=== PATIENT | female | born 1945 | race Caucasian/White ===

== ENCOUNTER 2020-03-07 09:16 | Emergency (ER) | payer MEDICARE, SELFPAY ==
[2020-03-07 09:24] VITALS: BP 162/63; PULSE 66; RESP 20; TEMP 36.1; O2SAT 97
--- NOTE | 2020-03-07 09:41 | ED.ALLEREA ---
HPI - Allergic Reaction General Chief complaint: Allergic Reaction Stated complaint: ALLERGIC REACTION Time Seen by Provider: 03/07/20 09:41 Source: patient and RN notes reviewed Mode of arrival: ambulatory Limitations: no limitations History of Present Illness HPI narrative: This is a 74 years old female presented office for evaluation of facial swelling for 1 week. Symptoms began shortly after she with that her new apartment which she suspects the previous tanker driver used to have cat. She began with water eye, itchy nose and face; so she took one dose of benadryl that night. The very next day, her friend told her to spray mask with lysol to disinfected it; which she believes it made her symptoms worse; so she began to take Zyretec instead. She thinks her overall symptoms are getting better except the facial swelling. Denies shortness of breath or difficulty swallowing however she noticed that she feels very thirsty and having to spit a lot. Related Data Home Medications Medication Instructions Recorded Confirmed bisoprolol 10 1 tablet PO DAILY 10/31/19 03/07/20 mg-hydrochlorothiazide 6.25 mg tablet lovastatin 20 mg tablet 20 mg PO DAILY 10/31/19 03/07/20 omeprazole 20 mg capsule,delayed 20 mg PO DAILY 10/31/19 03/07/20 release alprazolam 0.25 mg PO DAILY PRN 03/07/20 03/07/20 Allergies Allergy/AdvReac Type Severity Reaction Status Date / Time Sulfa (Sulfonamide Allergy Mild UNSURE Verified 03/07/20 09:35 Antibiotics) methotrexate Allergy Unknown Unknown Verified 03/07/20 09:35 mirabegron Allergy Unknown Dyspnea / Verified 03/07/20 09:35 SOB Penicillins Allergy Unknown Hives Verified 03/07/20 09:35 sulfamethizole Allergy Unknown Nausea Verified 03/07/20 09:35 Review of Systems Review of Systems: Narrative: CONSTITUTIONAL: Denies fever, chills EYES: Denies visual changes, redness ENT: Denies rhinorrhea, congestion, otalgia. Reports a little scratchy throat and thirsty at night time. CARDIOVASCULAR: Denies chest pain RESPIRATORY: Denies dyspnea, wheezing GASTROINTESTINAL: Denies nausea, vomiting. Reports chronic diarrhea due to her IBS. GENITOURINARY: Denies urinary symptoms SKIN: Denies rash/hives. MUSCULOSKELETAL: Denies acute back pain NEUROLOGIC: Denies lightheaded PMFSH Past Medical History Medical History Acute kidney failure, unspecified Arthritis of foot, degenerative Chronic pulmonary edema Essential (primary) hypertension Familial chondrocalcinosis, unspecified site Mixed stress and urge urinary incontinence Morbid (severe) obesity due to excess calories Nonalcoholic steatohepatitis ([place]) Other specified crystal arthropathies, unspecified site Pes planus of both feet Primary pulmonary hypertension Rotator cuff tear Spinal stenosis, unspecified region other than cervical Type 2 diabetes mellitus with chronic kidney disease, 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 Surgical History Surgical History H/O: hysterectomy total History of knee replacement (2005) History of lumbar laminectomy (2009) Hx of tonsillectomy Family History Family History Sibling Diabetes mellitus Cerebrovascular accident Mother Hypertension Family history of cardiovascular disease Carcinoma of colon Father Family history of kidney disease Other Family history of arthritis Social History Social History Smoking status: Never smoker Alcohol intake: never Comments At time of signature, I agree with nursing past medical, surgical, social and family history. There is no relevant family history pertinent to the presenting complaint. Exam Narrative: Exam Narrative: GENERAL: This is a well-nourished, well-developed patient, in
== END 2020-03-07 10:00 | disposition home or self-care (01) ==
PROVIDERS: Emergency Provider Nurse Practitioner; PCP Family Medicine
DX: L30.9 Dermatitis, unspecified (principal); I12.9 Hypertensive chronic kidney disease with stage 1 through stage 4 chronic kidney disease, or unspecified chronic kidney disease; E11.22 Type 2 diabetes mellitus with diabetic chronic kidney disease; N18.9 Chronic kidney disease, unspecified; Z79.4 Long term (current) use of insulin; K75.81 Nonalcoholic steatohepatitis (NASH); E66.01 Morbid (severe) obesity due to excess calories; Z68.33 Body mass index [BMI] 33.0-33.9, adult
CPT/HCPCS: 99213; G0463

== ENCOUNTER 2020-04-16 12:48 | Outpatient (CLI) | payer MEDICARE, SELFPAY ==
--- NOTE | ~2020-04-16 | XR_ITS ---
EXAMINATION: XR lumbar spine 2-3V DATE: 04/16/2020 14:33 INDICATION: Lumbar radiculopathy TECHNIQUE: Anteroposterior and lateral views of the lumbar spine, and cone-down lateral view of the l umbosacral junction were obtained. COMPARISON: 04/08/2014 FINDINGS: There are changes of anterior and posterior fusion procedures at L4-5. There is chronic sev ere loss of intervertebral disc space height at T12-L1, L1-2, L2-3, and L5-S1. The vertebral body hei ghts are maintained. There are 5 mm of stable anterolisthesis of L4 on L5. No fracture is identified. Surgical clips in the right upper quadrant are likely from prior cholecystectomy. The bowel gas emir scarlet is normal. Phleboliths are noted in the pelvis. There is severe multilevel facet osteoarthritis. IMPRESSION: 1. Severe lumbar spondylosis without acute findings or significant interval change. Reviewed, dictated and finalized at location A. IMPRESSION: 1. Severe lumbar spondylosis without acute findings or significant interval lula nge.
--- NOTE | ~2020-04-16 | MR_ITS ---
EXAMINATION: MR lumbar spine wo con EXAM DATE: 04/16/2020 14:19 INDICATION: Lumbar radiculopathy. TECHNIQUE: Multi-sequential, multiplanar MR images of the lumbar spine were obtained without contrast . Sagittal T1, T2, T2 fat saturation images. Axial T2 weighted images. Comparison is made to prior examination from 02/07/2016. FINDINGS: Posterior fusion and solid bone bridging at L4-5, laminectomies. There is 2-3 mm retrolisth esis L1 on L2 and L2 on L3, 3 mm is anterolisthesis L3 on L4 with moderate disc disease at these 3 le vels. There is mild to moderate disc disease at L2-3. The conus medullaris terminates at the T12-L1 l evel and has normal signal intensity and morphology. There are no suspicious marrow signal abnormali ties. Paraspinal soft tissue is unremarkable. Level by level evaluation: T12-L1: There is a large diffuse disc bulge. Facet arthropathy: Mild to moderate. Neural foraminal stenosis: Moderate right, no left. Central canal stenosis: Mild to moderate. L1-L2: There is a moderate to large diffuse disc bulge. Facet arthropathy: Moderate. Neural foraminal stenosis: Moderate left, mild to moderate right. Central canal stenosis: Mild to moderate. L2-L3: There is a moderate diffuse disc bulge. Facet arthropathy: Moderate. Neural foraminal stenosis: Mild to moderate left, mild right. Central canal stenosis: Mild to moderate. L3-L4: There is a moderate diffuse disc bulge. Facet arthropathy: Probably severe. Neural foraminal stenosis: Moderate to severe left, moderate right. Central canal stenosis: Moderate to severe. L4-L5: This level is fused. Facet arthropathy: Moderate. Neural foraminal stenosis: Moderate to severe right, moderate left. Central canal stenosis: Mild, posterior decompression. L5-S1: There is a mild diffuse disc bulge. Facet arthropathy: Moderate. Neural foraminal stenosis: Mild to moderate bilateral. Central canal stenosis: Moderate. Compared to 2016, there is been interval progression in spondylosis, including the L3-4 Central canal stenosis. IMPRESSION: 1. Fusion, surgical changes L4-5. 2. L3-4 moderate to severe central canal stenosis. Reviewed, dictated and finalized at location A.
--- NOTE | ~2020-04-16 | XR_ITS ---
EXAMINATION: XR thoracic spine 2V DATE: 04/16/2020 14:34 INDICATION: Thoracic radiculopathy TECHNIQUE: AP, lateral and lateral swimmer's views of the thoracic spine were obtained. COMPARISON: None. FINDINGS: There is no fracture. The vertebral body heights and alignment are normal. There is severe loss of intervertebral disc space height in the mid and lower thoracic spine. There are bridging oste ophytes at multiple levels in the spine, consistent with diffuse idiopathic skeletal hyperostosis (DI SH). IMPRESSION: 1. Diffuse idiopathic skeletal hyperostosis and severe thoracic spondylosis without acute findings. Reviewed, dictated and finalized at location A. IMPRESSION: 1. Diffuse idiopathic skeletal hyperostosis and severe thoracic spondylosis wit hout acute findings.
--- NOTE | ~2020-04-16 | MR_ITS ---
EXAMINATION: MR thoracic spine wo con EXAM DATE: 04/16/2020 14:19 INDICATION: Thoracolumbar radiculopathy. TECHNIQUE: Multi-sequential, multiplanar MR images of the thoracic spine were obtained without contra st. Sagittal T1, T2, T2 fat saturation, axial T2 weighted images reviewed. There is no prior study for comparison. FINDINGS: There are mild chronic appearing compression deformities at T6 and T7 with mild disc bulge s at these levels, smaller disc bulges at some other thoracic levels. There is 2 mm anterolisthesis T 2 on T3. Moderate disc disease at C6-7 and T7-8, mild to moderate at the other thoracic levels. Mild to moderate thoracic facet arthropathy. The spinal cord signal intensity and intrinsic morphology is normal. No more than mild to moderate neural foraminal stenosis at some of the mid thoracic levels. N o endplate erosive change. Paraspinal soft tissue is unremarkable. Fluid signal intensity renal lesi ons consistent with cysts. IMPRESSION: 1. Moderate mid thoracic disc disease and 2 mild chronic appearing compression fractures. 2. Otherwise mild to moderate thoracic spondylosis. Reviewed, dictated and finalized at location A.
== END 2020-04-16 12:49 | disposition home or self-care (01) ==
PROVIDERS: PCP Family Medicine; Visit Provider Nurse Practitioner Adult Health
DX: M54.16 Radiculopathy, lumbar region (principal); M54.14 Radiculopathy, thoracic region; M51.84 Other intervertebral disc disorders, thoracic region; M48.54XA Collapsed vertebra, not elsewhere classified, thoracic region, initial encounter for fracture; M47.814 Spondylosis without myelopathy or radiculopathy, thoracic region; Z98.1 Arthrodesis status; M48.061 Spinal stenosis, lumbar region without neurogenic claudication; M48.14 Ankylosing hyperostosis [Forestier], thoracic region; M47.816 Spondylosis without myelopathy or radiculopathy, lumbar region
CPT/HCPCS: 72070; 72100; 72146; 72148

== ENCOUNTER → 2020-11-10 17:17 | Outpatient (CLI) | payer MEDICARE, SELFPAY ==
--- NOTE | ~2020-11-10 | MM_ITS ---
EXAMINATION: MM screening [facility] BI w phil HISTORY: Screening mammogram TECHNIQUE: Craniocaudal and mediolateral oblique 3-D tomosynthesis images were obtained and synthetic 2-D images were generated. CAD analysis was submitted and interpreted. COMPARISON: 08/15/2019, 07/22/2018, 06/07/2017 BREAST PARENCHYMAL COMPOSITION: The breasts are almost entirely fatty. FINDINGS: There is no evidence of suspicious mass, calcification, or architectural distortion to sugg est malignancy in either breast. There has been no suspicious interval change. IMPRESSION: 1. No mammographic evidence of malignancy. 2. Recommend routine screening mammography in one year. BI-RADS Category 1: Negative Reviewed, dictated and finalized at location A. RESSOR ENGINEER
== END ==
PROVIDERS: PCP Family Medicine; Visit Provider Family Medicine
DX: Z12.31 Encounter for screening mammogram for malignant neoplasm of breast (principal)
CPT/HCPCS: 77063; 77067

== ENCOUNTER 2020-11-20 12:37 | Emergency (ER) | payer MEDICARE, SELFPAY ==
--- NOTE | ~2020-11-20 | XR_ITS ---
EXAMINATION: XR chest 2V 11/20/2020 16:40 INDICATION: Hypertension. Lightheadedness. PROCEDURE: AP and lateral views of the chest COMPARISON: Comparison to multiple prior studies sequentially, with oldest reviewed study dated 06/2006. FINDINGS: The lungs are clear. The cardiomediastinal silhouette is within normal limits. There are no pleural effusions. There is no pneumothorax suspected. There is a left shoulder arthroplasty. Th ere are surgical changes right humeral head. IMPRESSION: 1: NO ACUTE CARDIOPULMONARY DISEASE. Reviewed, dictated and finalized at location A. STMENT SPECIALIST
--- NOTE | ~2020-11-20 | CT_ITS ---
EXAMINATION: CT brain wo con DATE: 11/20/2020 16:32 INDICATION: Weakness. Transient alteration of awareness. TECHNIQUE: Computed tomography (CT) of the head was performed without intravenous contrast. The dose- length product was 605.33 mGy-cm. Automated exposure control and iterative reconstruction technique w ere employed. COMPARISON: None FINDINGS: Study limited due to exclusion of the vertex of the brain. No acute intracranial hemorrhage , infarction, mass or mass effect. Mild atrophy. There are scattered mild periventricular and subcort ical white matter changes, most likely related to small vessel ischemic disease (microangiopathy). Th ere is intracranial atherosclerosis. IMPRESSION: 1. No acute intracranial abnormality. 2: Chronic age-related findings. Reviewed, dictated and finalized at location A. LEATHER SETTER
[2020-11-20 12:41] VITALS: BP 176/80; PULSE 78; RESP 20; TEMP 36.6; O2SAT 97
[2020-11-20 13:00] LABS: Basophils Percent Auto 0.6 % (0.2-1.2); Eosinophils Absolute Auto 0.2 K/mm3 (0-0.3); Eosinophils Percent Auto 3.1 % (0-4.4); Hematocrit 33.8 % (37.0-47.0); Hemoglobin 10.6 g/dL (12.0-15.0); Immature Granulocyte Absolute 0.02 K/mm3 (0.00-0.031); Immature Granulocyte Percent A 0.4 % (0-0.5); Lymphocytes Absolute Auto 1.39 K/mm3 (0.9-3.2); Lymphocytes Percent Auto 27.3 % (18.3-44.2); Mean Corpuscular HGB Conc 31.4 g/dl (32-36); Mean Corpuscular Hemoglobin 26.8 pg (26-34); Mean Corpuscular Volume 85.6 fl (80-100); Mean Platelet Volume 9.4 fl (7.4-10.4); Monocytes Absolute Auto 0.4 K/mm3 (0.1-0.6); Monocytes Percent Auto 8.1 % (2.6-8.5); Neutrophils Absolute Auto 3.1 K/mm3 (1.3-6.7); Neutrophils Percent Auto 60.5 % (45.5-73.1); Platelet Count Result 176 k/mm3 (150-375); Red Blood Count 3.95 M/mm3 (4.2-5.4); Red Cell Distribution Width 15.8 % (11.5-14.5); White Blood Count 5.1 K/mm3 (4.5-10.0)
[2020-11-20 13:12] LABS: Alanine Aminotransferase 17 U/L (4-35); Albumin Level 4.1 g/dL (3.5-5.1); Alkaline Phosphatase 83 U/L (38-126); Anion Gap 11 mmol/L (8-16); Aspartate Amino Transferase 24 U/L (14-36); Bilirubin,Total 0.4 mg/dL (0.2-1.3); Blood Urea Nitrogen 36 mg/dL (7-17); Calcium 9.4 mg/dL (8.4-10.2); Carbon Dioxide 27 mmol/L (22-30); Chloride 96 mmol/L (98-107); Estimated CRCL calculation 28 ml/min; Estimated Glomerular Filt Rate 32; Glucose 122 mg/dL (65-105); Potassium 4.1 mmol/L (3.4-5.0); Sodium 134 mmol/L (137-145)
[2020-11-20 13:50] LABS: Add Urine Microscopic? NO; Appearance Urine Clear (Clear); Bilirubin Urine Negative (Negative); Blood Urine Negative (Negative); Color Urine Straw (Yellow); Glucose Urine UA Negative (Negative); Ketones Urine Negative (Negative); Leukocyte Esterase Ur Negative LEU/UL (Negative); Nitrate Urine Negative (Negative); Protein Urine Negative (Negative); Specific Grav Ur 1.011 (1.001-1.035); Urobilinogen Urine Negative mg/dL (<2.0)
[2020-11-20 14:48] VITALS: BP 149/62; PULSE 78; RESP 16; TEMP 36.7; O2SAT 98
[2020-11-20] MEDS: SODIUM CHLORIDE 0.9% IV 1,000 ML 999 ML IV CONT ×2 (14:51→16:18)
--- NOTE | 2020-11-20 16:04 | ECG_ITS ---
Measurements Intervals [place] Rate: 67 P: 83 WI: 194 QRS: 17 QRSD: 102 T: 22 QT: 408 QTc: 433 Interpretive Statements SINUS RHYTHM DELAYED PRECORDIAL R/S TRANSITION VOLTAGE CRITERIA FOR LVH BORDERLINE ECG Electronically Signed On 11-20-2020 20:15:54 NURSING DEPARTMENT CHAIRPERSON by Michael Moreno D.O.
--- NOTE | 2020-11-20 16:07 | ED.WEAKNESS ---
HPI - Weakness General Chief complaint: Weakness Stated complaint: weak/ 3 neg covid test/diarrhea Time Seen by Provider: 11/20/20 14:38 Source: patient Mode of arrival: ambulatory Limitations: no limitations History of Present Illness HPI Narrative: This is a 74 year old female that presents to the ER for generalized weakness. Reports she has history of IBS and does have loose stools often. But over the last week has had worsening diarrhea and feels lightheaded when she stands up. Reports she generally feels unwell. Denies fever, abdominal pain, vomiting, hematochezia, dysuria or hematuria. Related Data Home Medications Medication Instructions Recorded Confirmed calcium carbonate 600 mg calcium 600 mg PO BID 07/12/20 11/11/20 (1,500 mg) tablet cholecalciferol (vitamin D3) 25 25 mcg PO DAILY 07/12/20 11/11/20 mcg (1,000 unit) capsule diclofenac sodium 1 % topical gel 2 gm TOPICAL QID 07/12/20 11/11/20 folic acid 1 mg tablet 1 mg PO DAILY 07/12/20 11/11/20 magnesium 250 mg tablet 500 mg PO DAILY tablet 07/12/20 11/11/20 Allergies Allergy/AdvReac Type Severity Reaction Status Date / Time Sulfa (Sulfonamide Allergy Mild UNSURE Verified 11/20/20 14:32 Antibiotics) methotrexate Allergy Unknown Unknown Verified 11/20/20 14:32 mirabegron Allergy Unknown Dyspnea / Verified 11/20/20 14:32 SOB Penicillins Allergy Unknown Hives Verified 11/20/20 14:32 sulfamethizole Allergy Unknown Nausea Verified 11/20/20 14:32 Review of Systems Review of Systems: Narrative: CONSTITUTIONAL: Denies fever CARDIOVASCULAR: Denies chest pain RESPIRATORY: Denies cough or dyspnea. GASTROINTESTINAL: Reports nausea and diarrhea. Denies abdominal pain, vomiting GENITOURINARY: Denies dysuria or hematuria. NEUROLOGIC: Reports generalized weakness. All systems reviewed & are unremarkable except as noted in HPI and below PMFSH Past Medical History Medical History (Updated 11/20/20 @ 17:50 by Scarlett Castro PA-C) Acute kidney failure, unspecified Arthritis of foot, degenerative Arthritis of left shoulder region Chronic pain Chronic pulmonary edema CKD (chronic kidney disease) stage 3, GFR 30-59 ml/min Compression fracture of body of thoracic vertebra Degenerative lumbar spinal stenosis Essential (primary) hypertension Familial chondrocalcinosis, unspecified site Mixed stress and urge urinary incontinence Morbid (severe) obesity due to excess calories Nonalcoholic steatohepatitis ([place]) Obesity (BMI 30.0-34.9) Osteopenia Other specified crystal arthropathies, unspecified site Pes planus of both feet Primary pulmonary hypertension Pseudogout Rotator cuff tear Spinal stenosis, unspecified region other than cervical Type 2 diabetes mellitus with chronic kidney disease, 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 Urinary incontinence Surgical History Surgical History H/O: hysterectomy total History of knee replacement (2005) History of lumbar laminectomy (2009) Hx of tonsillectomy S/P arthroscopy of left shoulder Family History Family History Sibling Diabetes mellitus Cerebrovascular accident Mother Hypertension Family history of cardiovascular disease Carcinoma of colon Father Family history of kidney disease Other Family history of arthritis Social History Social History Smoking status: Never smoker Alcohol intake: never Exam Narrative: Exam Narrative: GENERAL: Elderly, well-nourished, and in no acute distress. HEAD: Normocephalic, atraumatic. EYES: EOMI. ENT: Nares clear, no rhinorrhea or epistaxis. Mucous membranes moist. Oropharynx without tonsillar hypertrophy exudate or other lesions. NECK: Supple. No adenopathy or masses. CHEST: Clear to auscultation. No respiratory distress. No wheez
[2020-11-20 16:45] VITALS: BP 147/71; BP 174/70; PULSE 68; PULSE 71
[2020-11-20 16:47] VITALS: BP 181/71; PULSE 72
== END 2020-11-20 18:18 | disposition home or self-care (01) ==
PROVIDERS: Emergency Provider Emergency Medicine; PCP Family Medicine
DX: E86.0 Dehydration (principal); K58.9 Irritable bowel syndrome, unspecified; E11.22 Type 2 diabetes mellitus with diabetic chronic kidney disease; I12.9 Hypertensive chronic kidney disease with stage 1 through stage 4 chronic kidney disease, or unspecified chronic kidney disease; N18.30 Chronic kidney disease, stage 3 unspecified; Z79.84 Long term (current) use of oral hypoglycemic drugs; E11.21 Type 2 diabetes mellitus with diabetic nephropathy; N39.46 Mixed incontinence; M85.80 Other specified disorders of bone density and structure, unspecified site; M21.42 Flat foot [pes planus] (acquired), left foot; M21.41 Flat foot [pes planus] (acquired), right foot; M11.20 Other chondrocalcinosis, unspecified site; I27.20 Pulmonary hypertension, unspecified; E66.01 Morbid (severe) obesity due to excess calories; Z68.33 Body mass index [BMI] 33.0-33.9, adult; K75.81 Nonalcoholic steatohepatitis (NASH); J81.1 Chronic pulmonary edema; M19.079 Primary osteoarthritis, unspecified ankle and foot; M19.012 Primary osteoarthritis, left shoulder; R94.31 Abnormal electrocardiogram [ECG] [EKG]
CPT/HCPCS: 36415; 70450; 71046; 80053; 81003; 85025; 93005; 96360; 96361; 99284; J7030

== ENCOUNTER 2021-06-20 14:10 | Inpatient (IN) | payer MEDICARE, SELFPAY ==
--- NOTE | ~2021-06-20 | XR_ITS ---
XR chest 2V 06/20/2021 14:43 Indication: Weakness, cough and shortness of breath. No fever. Procedure: AP and lateral views of the chest Comparison: Comparison to multiple prior studies sequentially, with oldest reviewed study dated 10/26. Findings: Heart size is normal. No focal air space disease, pulmonary edema, pleural effusion or susp ected pneumothorax. There is a left shoulder arthroplasty. Impression: 1: No acute cardiopulmonary disease. Reviewed, dictated and finalized at location A. Impression: 1: No acute cardiopulmonary disease.
[2021-06-20 14:26] VITALS: BP 105/57; PULSE 80; RESP 18; TEMP 36.9; O2SAT 99
--- NOTE | 2021-06-20 14:29 | ECG_ITS ---
Measurements Intervals [place] Rate: 78 P: 29 MO: 176 QRS: -29 QRSD: 102 T: 30 QT: 383 QTc: 437 Interpretive Statements SINUS RHYTHM DELAYED PRECORDIAL R/S TRANSITION VOLTAGE CRITERIA FOR LVH BORDERLINE ECG Electronically Signed On 06-20-2021 14:59:02 CDT by Michael Moreno D.O.
[2021-06-20 14:45] LABS: Basophils Percent Auto 0.3 % (0.2-1.2); Eosinophils Percent Auto 0.2 % (0-4.4); Hematocrit 30.7 % (37.0-47.0); Hemoglobin 8.7 g/dL (12.0-15.0); Immature Granulocyte Absolute 0.02 K/mm3 (0.00-0.031); Immature Granulocyte Percent A 0.3 % (0-0.5); Lymphocytes Absolute Auto 1.22 K/mm3 (0.9-3.2); Lymphocytes Percent Auto 21.2 % (18.3-44.2); Mean Corpuscular HGB Conc 28.3 g/dl (32-36); Mean Corpuscular Hemoglobin 20.7 pg (26-34); Mean Corpuscular Volume 72.9 fl (80-100); Mean Platelet Volume 9.4 fl (7.4-10.4); Monocytes Absolute Auto 0.5 K/mm3 (0.1-0.6); Platelet Count Result 148 k/mm3 (150-375); Red Blood Count 4.21 M/mm3 (4.2-5.4); Red Cell Distribution Width 19.7 % (11.5-14.5); White Blood Count 5.8 K/mm3 (4.5-10.0)
[2021-06-20 15:01] LABS: Alanine Aminotransferase 20 U/L (4-35); Albumin Level 4.3 g/dL (3.5-5.1); Alkaline Phosphatase 105 U/L (38-126); Anion Gap 11 mmol/L (8-16); Aspartate Amino Transferase 31 U/L (14-36); Bilirubin,Total 0.4 mg/dL (0.2-1.3); Blood Urea Nitrogen 32 mg/dL (7-17); Carbon Dioxide 22 mmol/L (22-30); Chloride 98 mmol/L (98-107); Estimated CRCL calculation 22 ml/min; Estimated Glomerular Filt Rate 24; Glucose 99 mg/dL (65-110); Potassium 4.5 mmol/L (3.4-5.0); Sodium 131 mmol/L (137-145)
[2021-06-20 16:36] LABS: Hypochromasia 1+ (NORMAL); Ovalocytes 1+ (NORMAL); Platelet Estimate Adequate (Adequate)
--- NOTE | 2021-06-20 20:38 | ED.URI ---
HPI - URI/Sore Throat General Chief Complaint: Upper Respiratory Infection Stated Complaint: runny nose, cough, weakness Time Seen by Provider: 06/20/21 20:37 Source: patient Mode of arrival: wheelchair Limitations: no limitations History of Present Illness HPI Narrative: Patient is a 75-year-old female with history of chronic kidney disease, diabetes, hypertension who presents for evaluation of weakness. Patient states she has felt unwell over the past 4 days, symptoms beginning on Sunday. Patient states that she developed a dry cough, rhinorrhea, sore throat and general malaise. She states she had a low-grade fever of 99 Fahrenheit. At that point in time, she was visiting with her brother and 2 grandchildren, who have been in good health without any symptoms. Patient states that she then developed a productive cough and was seen by her primary care physician who diagnosed her with sinusitis. Patient states that she has been feeling worse with development of diarrhea. No current abdominal pain or nausea. Patient states she feels diffusely weak without focal weakness or numbness. She states she has had decreased oral intake. She denies loss of sense of taste or smell. No known Covid contacts. States she has been vaccinated for coronavirus and has no history of infection. She denies any dysuria or hematuria. No current chest pain. Related Data Home Medications Medication Instructions Recorded Confirmed calcium carbonate 600 mg calcium 600 mg PO BID 07/12/20 06/15/21 (1,500 mg) tablet cholecalciferol (vitamin D3) 25 25 mcg PO DAILY 07/12/20 06/15/21 mcg (1,000 unit) capsule magnesium 250 mg tablet 500 mg PO DAILY tablet 07/12/20 06/15/21 Allergies Allergy/AdvReac Type Severity Reaction Status Date / Time Sulfa (Sulfonamide Allergy Mild UNSURE Verified 06/20/21 21:02 Antibiotics) methotrexate Allergy Unknown Unknown Verified 06/20/21 21:02 mirabegron Allergy Unknown Dyspnea / Verified 06/20/21 21:02 SOB Penicillins Allergy Unknown Hives Verified 06/20/21 21:02 sulfamethizole Allergy Unknown Nausea Verified 06/20/21 21:02 Review of Systems Review of Systems: Narrative: CONSTITUTIONAL: Reports low-grade fever EYES: Denies visual changes, redness, or discharge. ENT: Reports rhinorrhea and congestion CARDIOVASCULAR: Denies chest pain, palpitations, or edema. RESPIRATORY: Denies cough or dyspnea. GASTROINTESTINAL: Denies abdominal pain, reports intermittent nausea and diarrhea GENITOURINARY: Denies dysuria or hematuria. SKIN: Denies rash or itching. MUSCULOSKELETAL: Denies back pain, joint pain, or myalgia. NEUROLOGIC: Denies headache, numbness, reports feeling diffusely weak PMFSH Past Medical History Medical History Acute kidney failure, unspecified Adjustment disorder with depressed mood Arthritis of foot, degenerative Arthritis of left shoulder region Chronic pain Chronic pulmonary edema CKD (chronic kidney disease) stage 3, GFR 30-59 ml/min Compression fracture of body of thoracic vertebra Degenerative lumbar spinal stenosis Essential (primary) hypertension Familial chondrocalcinosis, unspecified site Mixed stress and urge urinary incontinence Morbid (severe) obesity due to excess calories Nonalcoholic steatohepatitis ([place]) Obesity (BMI 30.0-34.9) Osteopenia Other specified crystal arthropathies, unspecified site Pes planus of both feet Primary pulmonary hypertension Pseudogout Rotator cuff tear Spinal stenosis, unspecified region other than cervical Type 2 diabetes mellitus with chronic kidney disease, 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 Urinary incontinence Surgical History Surgical History H/O: hysterectomy total History of knee replacement (2005) History of lumbar laminectomy (2009) Hx of tonsillectomy S/P arthroscopy of l
[2021-06-20 21:35] VITALS: O2SAT 95
[2021-06-20] MEDS: SODIUM CHLORIDE 0.9% IV 1,000 ML 150 ML IV CONT (21:50)
[2021-06-20] MEDS: SODIUM CHLORIDE 0.9% IV 1,000 ML 999 ML IV CONT (21:50)
[2021-06-20 21:52] LABS: Troponin I < 0.012 ng/mL (0.000-0.034)
[2021-06-20 23:20] LABS: Add Urine Microscopic? YES; Appearance Urine Clear (Clear); Bacteria Urine Trace /hpf; Bilirubin Urine Negative (Negative); Blood Urine Negative (Negative); Color Urine Straw (Yellow); Glucose Urine UA Negative (Negative); Ketones Urine Negative (Negative); Leukocyte Esterase Ur Negative LEU/UL (Negative); Mucus Urine Rare /lpf; Nitrate Urine Positive (Negative); Protein Urine Negative (Negative); RBC Urine 0-2 /hpf (0-2); Specific Grav Ur 1.008 (1.001-1.035); Squamous Epithelial Cell Urine Rare /hpf (Few); Urobilinogen Urine Negative mg/dL (<2.0); WBC Urine 0-3 /hpf
--- NOTE | 2021-06-20 23:58 | PM.IMHP ---
H&P: HPI History of Present Illness Date/Time: 06/20/21 23:58 Chief Complaint: weakness Narrative: This is a 75-year-old female with past medical history significant for hypertension, GERD, irritable bowel syndrome, diverticulosis, degenerative joint disease, recent back surgery in January of 2021. Patient states that she has been having for the last 2 weeks or so diarrhea also just recently started having rhinorrhea with chest congestion and productive cough, poor appetite. preliminary workup in emergency room was significant for elevated Bun/Creatinine, slightly low sodium, chest x-ray was clear. She has had abdominal tenderness which is mostly diffusely localized states that is normal for her due to her irritable bowel syndrome she denies any nausea or vomiting. She has been taken Tylenol extra-strength for back pain after her back surgery and baclofen for spasms. she presented to the emergency room in a wheelchair. Review of Systems Review of Systems: Narrative: generalized weakness lower back pain low-grade fevers renal Stokes productive cough Constitutional: Constitutional: Reports chills, Reports fever(s) and Reports weakness Eyes: Eyes: Reports change in vision ENT: Denies dysphagia, Denies dizziness, Reports nasal congestion and Reports nasal discharge Cardiovascular: Cardiovascular: Denies rapid heart rate, Denies irregular heart rhythm, Denies lightheadedness, Denies radiating jaw, neck or arm pain, Denies palpitations, Denies dyspnea on exertion and Denies orthopnea Respiratory: Respiratory: Reports change in phlegm color, Reports chest congestion, Reports cough and Denies dyspnea Gastrointestinal: Gastrointestinal: Reports abdominal pain, Denies dyspepsia, Denies heartburn, Reports diarrhea, Denies nausea and Denies vomiting Genitourinary: Genitourinary: Reports no additional female genitourinary complaints Musculoskeletal: Musculoskeletal: Reports back pain Comments: lower back surgery in January of 2021 Integumentary/Breasts: Skin/Breast: Reports system reviewed and no additional complaints, except as docu Neurologic: Reports system reviewed and no additional complaints, except as documented, Denies dizziness, Denies focal weakness and Denies weakness Psychiatric: Psychiatric: Reports no additional psychiatric complaints Endocrine: Endocrine: Reports no additional endocrine complaints Hematologic/Lymphatic: Hematologic/Lymphatic: Reports no additional hematologic/lymphatic complaints Allergic/Immunologic: Allergic/Immunologic: Reports no additional allergic/immunologic complaints PMFSH Past Medical History Medical History Acute kidney failure, unspecified Adjustment disorder with depressed mood Arthritis of foot, degenerative Arthritis of left shoulder region Chronic pain Chronic pulmonary edema CKD (chronic kidney disease) stage 3, GFR 30-59 ml/min Compression fracture of body of thoracic vertebra Degenerative lumbar spinal stenosis Essential (primary) hypertension Familial chondrocalcinosis, unspecified site Mixed stress and urge urinary incontinence Morbid (severe) obesity due to excess calories Nonalcoholic steatohepatitis ([place]) Obesity (BMI 30.0-34.9) Osteopenia Other specified crystal arthropathies, unspecified site Pes planus of both feet Primary pulmonary hypertension Pseudogout Rotator cuff tear Spinal stenosis, unspecified region other than cervical Type 2 diabetes mellitus with chronic kidney disease, 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 Urinary incontinence Surgical History Surgical History H/O: hysterectomy total History of knee replacement (2005) History of lumbar laminectomy (2009) Hx of tonsillectomy S/P arthroscopy of left shoulder Family History Family History Sibling
[2021-06-21] VITALS (7 sets, daily range): BP systolic 123–145; BP diastolic 52–64; PULSE 74–99; RESP 16–18; TEMP 36.3–36.7; O2SAT 95–97; BMI 33.3
[2021-06-21] MEDS: ALPRAZolam (*CRX) 0.25 MG TABLET PO ×3 (02:49→22:59)
[2021-06-21] MEDS: ACETAMINOPHEN 500 MG TABLET 1000 MG PO (02:49)
[2021-06-21] MEDS: BACLOFEN 10 MG TABLET 20 MG PO ×4 (02:51→22:56)
[2021-06-21 06:39] LABS: Basophils Percent Auto 0.2 % (0.2-1.2); Eosinophils Percent Auto 0.2 % (0-4.4); Hematocrit 28.2 % (37.0-47.0); Hemoglobin 7.9 g/dL (12.0-15.0); Immature Granulocyte Absolute 0.03 K/mm3 (0.00-0.031); Immature Granulocyte Percent A 0.7 % (0-0.5); Immature Platelet Fraction Pct 8.4 % (0.9-11.2); Lymphocytes Absolute Auto 1.21 K/mm3 (0.9-3.2); Lymphocytes Percent Auto 27.1 % (18.3-44.2); Mean Corpuscular Hemoglobin 20.7 pg (26-34); Monocytes Absolute Auto 0.3 K/mm3 (0.1-0.6); Monocytes Percent Auto 6.3 % (2.6-8.5); Neutrophils Absolute Auto 2.9 K/mm3 (1.3-6.7); Neutrophils Percent Auto 65.5 % (45.5-73.1); Platelet Count Result 103 k/mm3 (150-375); Red Blood Count 3.81 M/mm3 (4.2-5.4); Red Cell Distribution Width 19.7 % (11.5-14.5); White Blood Count 4.5 K/mm3 (4.5-10.0)
[2021-06-21 07:05] LABS: Anion Gap 11 mmol/L (8-16); Blood Urea Nitrogen 27 mg/dL (7-17); Calcium 8.4 mg/dL (8.4-10.2); Carbon Dioxide 19 mmol/L (22-30); Chloride 101 mmol/L (98-107); Estimated CRCL calculation 33 ml/min; Estimated Glomerular Filt Rate 40; Glucose 82 mg/dL (65-110); Potassium 4.9 mmol/L (3.4-5.0); Sodium 131 mmol/L (137-145)
[2021-06-21 07:22] LABS: Anisocytosis 2+ (NORMAL)
[2021-06-21 07:23] LABS: Ovalocytes 1+ (NORMAL)
[2021-06-21 07:24] LABS: Poikilocytosis 1+ (NORMAL)
[2021-06-21 08:13] LABS: Immature Reticulocyte Fraction 23.1 % (3.0-15.9); Reticulocyte Hemoglobin Conten 22.4 pg (28.2-35.7); Reticulocyte Percent 0.82 % (0.7-4.3); Reticulocytes Absolute 0.03 B/L (32.2-175.7)
--- NOTE | 2021-06-21 08:29 | ADMGEN ---
This patient, Elizabeth Rodriguez, was admitted to [facility] Surg Room 315-01. Patient/family oriented to hospital policies and general routines including ID bracelet, bed and alarms, visiting hours, pain management, procedures, bathroom and other care routines, personal items, smoking policy, room service/diet, and visiting hours. Information on how to activate the Rapid Response Team has been discussed. Patient/Family are encouraged to report perceived risks to care and to ask questions if they do not understand what they are told or what they should do. Discussed hospital policy, medications, call light use, bed alarm, SCD's and current health status. Patient states that she has been anxious to receive her nightly medications which were discussed by Dr. Mckeon.
[2021-06-21 08:33] LABS: Lactate Dehydrogenase 985 U/L (313-618)
[2021-06-21 08:37] LABS: Glucose Point of Care 86 mg/dl (65-105)
[2021-06-21 08:40] LABS: Transferrin 304 mg/dL (206-381)
[2021-06-21 08:43] LABS: NT Pro B Type Natriuretic Pept 182 pg/mL (5-100)
[2021-06-21 09:43] LABS: Iron 17 ug/dL (37-170)
[2021-06-21 09:50] LABS: Folic Acid > 20.0 ng/mL (2.76->20)
[2021-06-21 09:55] LABS: Percent Iron Saturation 4 % (20-50)
[2021-06-21 10:14] LABS: Thyroid Stimulating Hormone Reflex 0.613 uIU/mL (0.465-4.68)
[2021-06-21] MEDS: POTASSIUM CHLORIDE 20 MEQ TABLET PO (10:14)
--- NOTE | 2021-06-21 11:08 | P.PNIM_ITS ---
Progress Note: A&P Assessment and Plan (1) Acute kidney injury superimposed on CKD: Code(s): N17.9 - Acute kidney failure, unspecified; N18.9 - Chronic kidney disease, unspecified Status: Acute Assessment and Plan: * Baseline 1.0-1.6 * Back to baseline at 1.30 * secondary to GI losses, poor p.o. intake, use of diuretics. * IV fluids--received 2L from the ED * Restart home Furosemide 20 mg p.o. tablet daily * hold losartan * trend BUN and creatinine * labs in the a.m. * urine cultures pending * UA shows positive nitrates * intake and output daily (2) Weakness: Code(s): R53.1 - Weakness Status: Acute Assessment and Plan: * patient does have signs of anemia * H&H this morning was 7.9/28.2 yesterday it was 8.7/30.7 * secondary to chronic illness, recent back surgery, deconditioning * PT OT consult (3) Upper respiratory infection: Code(s): J06.9 - Acute upper respiratory infection, unspecified Status: Acute Assessment and Plan: * complaint of congestion, cough with yellow sputum production. * chest x-ray clear * 1 g of ceftriaxone given in the ED * white blood cell count is 4.5 * trend white blood cell count * blood cultures were not drawn prior to ceftriaxone * will consider getting blood cultures in the morning depending on the patient's course * COVID swab is pending (4) Degenerative lumbar spinal stenosis: Code(s): M48.061 - Spinal stenosis, lumbar region without neurogenic claudication Status: Acute Assessment and Plan: * status post bilateral knee replacement * is status post a lumbar laminectomy * supportive care * Continue home baclofen 20 mg p.o. t.i.d. (5) Type 2 diabetes mellitus with chronic kidney disease, without long-term current use of insulin: Code(s): E11.22 - Type 2 diabetes mellitus with diabetic chronic kidney disease Status: Chronic Assessment and Plan: * glucose this morning is 82 * Accu-Cheks AC and HS * insulin sliding scale as needed * holding metformin * hypoglycemia protocol * trend labs * labs in the a.m. * adjust medications as needed (6) Irritable bowel syndrome: Code(s): K58.9 - Irritable bowel syndrome without diarrhea Status: Acute Assessment and Plan: * follow-up in outpatient setting (7) Anemia: Code(s): D64.9 - Anemia, unspecified Status: Acute Assessment and Plan: * H&H is 7.9/28.2 today * H&H yesterday was 8.7/30.7 * anemia labs -iron 17, TIBC 408,% saturation 4, ferritin 29.5, transferrin is 304, LDH 985, B12 230, folate less than 20 * will start patient on oral iron * trend H&H * labs in the morning * will consider an occult blood due to complaints of diarrhea for long period of time Subjective Date/time seen: 06/21/21 09:15 Interval history: This is a 75-year-old female with past medical history significant for hypertension, GERD, irritable bowel syndrome, diverticulosis, degenerative joint disease, recent back surgery in January of 2021 who presented to the ED for evaluation of diarrhea, cough, congestion. patient stated that this all started on Sunday. She stated that she was outside with her son and she contributed to be sinuses. She also stated that her cough was dry at 1st and then it has now became productive with yellow sputum. She also states that she has had this issue before with the diarrhea a
--- NOTE | 2021-06-21 11:08 | PM.IMPN ---
Progress Note: A&P Assessment and Plan (1) Acute kidney injury superimposed on CKD: Code(s): N17.9 - Acute kidney failure, unspecified; N18.9 - Chronic kidney disease, unspecified Status: Acute Assessment and Plan: Baseline 1.0-1.6 Back to baseline at 1.30 secondary to GI losses, poor p.o. intake, use of diuretics. IV fluids--received 2L from the ED Restart home Furosemide 20 mg p.o. tablet daily hold losartan trend BUN and creatinine labs in the a.m. urine cultures pending UA shows positive nitrates intake and output daily (2) Weakness: Code(s): R53.1 - Weakness Status: Acute Assessment and Plan: patient does have signs of anemia H&H this morning was 7.9/28.2 yesterday it was 8.7/30.7 secondary to chronic illness, recent back surgery, deconditioning PT OT consult (3) Upper respiratory infection: Code(s): J06.9 - Acute upper respiratory infection, unspecified Status: Acute Assessment and Plan: complaint of congestion, cough with yellow sputum production. chest x-ray clear 1 g of ceftriaxone given in the ED white blood cell count is 4.5 trend white blood cell count blood cultures were not drawn prior to ceftriaxone will consider getting blood cultures in the morning depending on the patient's course COVID swab is pending (4) Degenerative lumbar spinal stenosis: Code(s): M48.061 - Spinal stenosis, lumbar region without neurogenic claudication Status: Acute Assessment and Plan: status post bilateral knee replacement is status post a lumbar laminectomy supportive care Continue home baclofen 20 mg p.o. t.i.d. (5) Type 2 diabetes mellitus with chronic kidney disease, without long-term current use of insulin: Code(s): E11.22 - Type 2 diabetes mellitus with diabetic chronic kidney disease Status: Chronic Assessment and Plan: glucose this morning is 82 Accu-Cheks AC and HS insulin sliding scale as needed holding metformin hypoglycemia protocol trend labs labs in the a.m. adjust medications as needed (6) Irritable bowel syndrome: Code(s): K58.9 - Irritable bowel syndrome without diarrhea Status: Acute Assessment and Plan: follow-up in outpatient setting (7) Anemia: Code(s): D64.9 - Anemia, unspecified Status: Acute Assessment and Plan: H&H is 7.9/28.2 today H&H yesterday was 8.7/30.7 anemia labs -iron 17, TIBC 408,% saturation 4, ferritin 29.5, transferrin is 304, LDH 985, B12 230, folate less than 20 will start patient on oral iron trend H&H labs in the morning will consider an occult blood due to complaints of diarrhea for long period of time Subjective Date/time seen: 06/21/21 09:15 Interval history: This is a 75-year-old female with past medical history significant for hypertension, GERD, irritable bowel syndrome, diverticulosis, degenerative joint disease, recent back surgery in January of 2021 who presented to the ED for evaluation of diarrhea, cough, congestion. patient stated that this all started on Sunday. She stated that she was outside with her son and she contributed to be sinuses. She also stated that her cough was dry at and then it has now became productive with yellow sputum. She also states that she has had this issue before with the diarrhea and that for the last few weeks she has not really been eating thing she has no appetite however she has had lots of diarrhea. In the past they have given her fluids which has made her feel better. she also said that she has had some nausea and that she has lost her appetite which she said started last weekend. patient denies melena or hematochezia. She also denies the recent use of antibiotics. Patient denies chest pain, shortness of breath, body aches, headache, numbness and tingling, sweats, fevers, chills,
[2021-06-21 12:42] LABS: Glucose Point of Care 110 mg/dl (65-105)
[2021-06-21] MEDS: LOVASTATIN 20 MG TABLET PO (13:05)
[2021-06-21] MEDS: CHOLECALCIFEROL 1,000 UNITS TABLET 1000 UNITS PO ×2 (13:05→16:50)
[2021-06-21] MEDS: PANTOPRAZOLE 40 MG TABLET PO (13:05)
[2021-06-21] MEDS: MAGNESIUM OXIDE 400 MG TABLET PO ×2 (13:06→16:50)
[2021-06-21] MEDS: CALCIUM CARBONATE (OSCAL) 500 MG TABLET PO ×2 (13:06→16:50)
[2021-06-21 13:49] LABS: IFOB Positive Control Positive; Immunochemical Fecal Occult Bl Positive (N)
[2021-06-21 15:38] LABS: SARS-CoV-2 RNA PCR Positive
--- NOTE | 2021-06-21 15:44 | PCNSR ---
On 06/21/21, the student, Dianelys Samuel, provided care and completed [facility]. I have reviewed the student's documentation and agree with the findings.
--- NOTE | 2021-06-21 16:19 | WPDGICN ---
Assessment and Plan Assessment and plan (1) Anemia: Code(s): D64.9 - Anemia, unspecified Status: Acute Assessment and Plan: Her iron is low, as is her MCV, suggesting chronic blood loss. There is however an acute drop in her hemoglobin from 10-7.9 (2) Blood in stool: Code(s): K92.1 - Melena Status: Acute Assessment and Plan: she had a colonoscopy about 2 years ago that was unremarkable. Now ever with positive Hemoccult we will need to investigate for a source of blood loss. I will schedule her for EGD and colonoscopy to be done tomorrow GI Consult Note Consult date/time: 06/21/21 16:19 this patient with a past history of spinal stenosis and recent back surgery also has diabetes, irritable bowel syndrome, and now acute cough reveal sputum and suspected lower respiratory infection. She also has had diarrhea which began about 2 weeks ago. She states that she has had intermittent diarrhea somewhat chronic basis, which she calls her irritable bowel. It has become worse recently. she does not see blood in her stools however. She has been found to be COVID positive, even though she was vaccinated. She denies vomiting or severe nausea. She denies heartburn or dysphagia. She does have abdominal pain which is bilateral, towards the lower quadrants and flanks. This has been present for quite awhile however. HPI: Elizabeth Rodriguez is a 75 year old female Review of Systems Review of Systems: All systems reviewed & are unremarkable except as noted in HPI and below PMFSH Past Medical History Medical History Acute kidney failure, unspecified Adjustment disorder with depressed mood Arthritis of foot, degenerative Arthritis of left shoulder region Chronic pain Chronic pulmonary edema CKD (chronic kidney disease) stage 3, GFR 30-59 ml/min Compression fracture of body of thoracic vertebra Degenerative lumbar spinal stenosis Essential (primary) hypertension Familial chondrocalcinosis, unspecified site Mixed stress and urge urinary incontinence Morbid (severe) obesity due to excess calories Nonalcoholic steatohepatitis ([place]) Obesity (BMI 30.0-34.9) Osteopenia Other specified crystal arthropathies, unspecified site Pes planus of both feet Primary pulmonary hypertension Pseudogout Rotator cuff tear Spinal stenosis, unspecified region other than cervical Type 2 diabetes mellitus with chronic kidney disease, 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 Urinary incontinence Surgical History Surgical History H/O: hysterectomy total History of knee replacement (2005) History of lumbar laminectomy (2009) Hx of tonsillectomy S/P arthroscopy of left shoulder Family History Family History Sibling Diabetes mellitus Cerebrovascular accident Mother Hypertension Family history of cardiovascular disease Carcinoma of colon Father Family history of kidney disease Other Family history of arthritis Social History Social History Smoking status: Never smoker Alcohol intake: never Substance use: never Substance use type: does not use Gender identity (if verbalized by the patient): Female Spiritual care concerns: No Meds Home Medications and Allergies Home Medications Medication Instructions Recorded Confirmed Type calcium carbonate 600 mg calcium 600 mg PO BID 07/12/20 06/21/21 History (1,500 mg) tablet cholecalciferol (vitamin D3) 25 25 mcg PO BID 07/12/20 06/21/21 History mcg (1,000 unit) capsule magnesium 250 mg tablet 500 mg PO BID tablet 07/12/20 06/21/21 History metformin 500 mg tablet See Rx Instructions .ROUTE 09/13/20 06/21/21 Rx .COMPLEX #180 tablet colchicine 0.6 mg tablet 0.6 mg PO BID #18
[2021-06-21] MEDS: BACLOFEN 10 MG TABLET PO (16:51)
[2021-06-21] MEDS: ACETAMINOPHEN 500 MG TABLET PO ×2 (16:52→22:56)
[2021-06-21] MEDS: FERROUS SULFATE 324 MG TABLET PO (16:52)
[2021-06-21] MEDS: PEG (High)/E-LYTE SOLN 4,000 ML BTL 3000 ML PO (16:54)
[2021-06-21] MEDS: polyethylene glycoL 3350 238 GM BOTTLE PO (18:30)
[2021-06-21 18:31] LABS: Glucose Point of Care 139 mg/dl (65-105)
[2021-06-22] VITALS (8 sets, daily range): BP systolic 109–155; BP diastolic 50–84; PULSE 81–100; RESP 16–25; TEMP 36.2–36.6; O2SAT 96–100
[2021-06-22 00:52] LABS: Glucose Point of Care 113 mg/dl (65-105)
[2021-06-22] MEDS: MAGNESIUM CITRATE 300 ML BTL PO (05:11)
[2021-06-22 06:20] LABS: Basophils Percent Auto 0.2 % (0.2-1.2); Eosinophils Percent Auto 0.5 % (0-4.4); Hematocrit 31.1 % (37.0-47.0); Hemoglobin 8.7 g/dL (12.0-15.0); Immature Granulocyte Absolute 0.02 K/mm3 (0.00-0.031); Immature Granulocyte Percent A 0.3 % (0-0.5); Lymphocytes Absolute Auto 1.22 K/mm3 (0.9-3.2); Lymphocytes Percent Auto 19.5 % (18.3-44.2); Mean Corpuscular Hemoglobin 20.5 pg (26-34); Mean Corpuscular Volume 73.2 fl (80-100); Mean Platelet Volume 9.5 fl (7.4-10.4); Monocytes Absolute Auto 0.3 K/mm3 (0.1-0.6); Monocytes Percent Auto 5.4 % (2.6-8.5); Neutrophils Absolute Auto 4.6 K/mm3 (1.3-6.7); Neutrophils Percent Auto 74.1 % (45.5-73.1); Platelet Count Result 180 k/mm3 (150-375); Red Blood Count 4.25 M/mm3 (4.2-5.4); Red Cell Distribution Width 19.9 % (11.5-14.5); White Blood Count 6.3 K/mm3 (4.5-10.0)
[2021-06-22 06:39] LABS: Alanine Aminotransferase 18 U/L (4-35); Albumin Level 4.1 g/dL (3.5-5.1); Alkaline Phosphatase 97 U/L (38-126); Anion Gap 12 mmol/L (8-16); Aspartate Amino Transferase 27 U/L (14-36); Bilirubin,Total 0.4 mg/dL (0.2-1.3); Blood Urea Nitrogen 15 mg/dL (7-17); Calcium 9.4 mg/dL (8.4-10.2); Carbon Dioxide 21 mmol/L (22-30); Chloride 103 mmol/L (98-107); Estimated CRCL calculation 43 ml/min; Estimated Glomerular Filt Rate 54; Glucose 97 mg/dL (65-110); Magnesium 1.6 mg/dL (1.6-2.3); Potassium 4.1 mmol/L (3.4-5.0); Sodium 136 mmol/L (137-145)
[2021-06-22 06:58] LABS: Anisocytosis 1+ (NORMAL); Microcytosis 1+ (NORMAL); Platelet Estimate Adequate (Adequate)
[2021-06-22 06:59] LABS: Ovalocytes 1+ (NORMAL)
[2021-06-22 08:09] LABS: Glucose Point of Care 104 mg/dl (65-105)
--- NOTE | 2021-06-22 09:10 | WPDANESEPPF ---
Anes - Initial Pre Proc Eval Procedure: Operation Date: 06/22/21 12:00 Proposed Procedures p Esophagogastroduodenoscopy & Colonoscopy - Darek Swan MD Date/Time: 06/22/21 09:10 Surgeon: Laurie Mckeon MD Pre Op Diagnosis: Cough, COVID PUI, GAURANG Patient Data Age: 75 Gender: F Height: 1.57 m Weight: 82.7 kg Last Vital Signs Temp 36.6 C 06/22/21 04:00 Pulse 88 06/22/21 04:00 Resp 18 06/22/21 04:00 BP 126/59 L 06/22/21 04:00 Pulse Ox 97 06/22/21 04:00 Allergies Allergy/AdvReac Type Severity Reaction Status Date / Time Sulfa (Sulfonamide Allergy Mild UNSURE Verified 06/20/21 21:02 Antibiotics) methotrexate Allergy Unknown Unknown Verified 06/20/21 21:02 mirabegron Allergy Unknown Dyspnea / Verified 06/20/21 21:02 SOB Penicillins Allergy Unknown Hives Verified 06/20/21 21:02 sulfamethizole Allergy Unknown Nausea Verified 06/20/21 21:02 Home Medications Medication Instructions Recorded Confirmed Type calcium carbonate 600 mg calcium 600 mg PO BID 07/12/20 06/21/21 History (1,500 mg) tablet cholecalciferol (vitamin D3) 25 25 mcg PO BID 07/12/20 06/21/21 History mcg (1,000 unit) capsule magnesium 250 mg tablet 500 mg PO BID tablet 07/12/20 06/21/21 History metformin 500 mg tablet See Rx Instructions .ROUTE 09/13/20 06/21/21 Rx .COMPLEX #180 tablet colchicine 0.6 mg tablet 0.6 mg PO BID #180 tablet 11/11/20 06/21/21 Rx lovastatin 20 mg tablet 20 mg PO DAILY #90 tablet 11/11/20 06/21/21 Rx losartan 50 mg tablet 50 mg PO BID #180 tablet 11/17/20 06/21/21 Rx alprazolam 0.25 mg tablet 0.25 mg PO BID PRN #180 tablet 01/03/21 06/21/21 Rx potassium chloride 20 mEq See Rx Instructions .ROUTE 01/13/21 06/21/21 Rx tablet,extended release(part/cryst) .COMPLEX #90 tablet baclofen 10 mg tablet 20 mg PO TID #180 tablet 03/23/21 06/21/21 Rx omeprazole 20 mg capsule,delayed 20 mg PO DAILY #90 cap 03/23/21 06/21/21 Rx release bisoprolol 10 1 tablet PO DAILY #90 tablet 04/11/21 06/21/21 Rx mg-hydrochlorothiazide 6.25 mg tablet furosemide 20 mg tablet 20 mg PO QAM #90 tablet 05/31/21 06/21/21 Rx Salonpas 0.93 % TOPICAL DAILY 06/21/21 06/21/21 History Zyrtec See Rx Instructions .ROUTE 06/21/21 06/21/21 History .COMPLEX PRN fluticasone propionate [Flonase 2 spray NASAL DAILY PRN 06/21/21 06/21/21 History Allergy Relief] meloxicam 15 mg PO DAILY 06/21/21 06/21/21 History Laboratory Tests 06/20/21 06/21/21 06/21/21 22:56 06:12 09:07 WBC RBC Hgb Hct MCV MCH MCHC RDW Plt Count MPV Immature Gran % (Auto) Neut % (Auto) Lymph % (Auto) Sherman % (Auto) Eos % (Auto) Baso % (Auto) Lymph # (Auto) Sherman # (Auto) Eos # (Auto) Baso # (Auto) Abs Immat Gran (auto) Absolute Neuts (auto) Absolute Nucleated RBC Nucleated RBC % Platelet Estimate Anisocytosis Microcytosis Ovalocytes Sodium Potassium Chloride Carbon Dioxide Anion Gap BUN Creatinine Estim Creat Clear Calc Estimated GFR Glucose POC Capillary Glucose Calcium Magnesium Iron 17 ug/dL L ug/dL (37-170) TIBC 408 ug/dL ug/dL (261-462) % Saturation 4 % L % (20-50) Ferritin 29.50 ng/mL ng/mL (11.1-264) Total Bilirubin AST ALT Alkaline Phosphatase Total Protein Albumin Vitamin B12 230.0 pg/mL L pg/mL (239-931) Folate > 20.0 ng/mL H ng/mL (2.76->20) TSH (Reflex) 0.613 uIU/mL uIU/m
[2021-06-22] MEDS: LACTATED RINGERS 1,000 ML 150 ML IV CONT (11:41)
[2021-06-22] MEDS: BACLOFEN 10 MG TABLET PO ×2 (13:20→16:50)
[2021-06-22] MEDS: ACETAMINOPHEN 500 MG TABLET PO ×2 (13:22→20:49)
[2021-06-22 13:40] LABS: Glucose Point of Care 103 mg/dl (65-105)
[2021-06-22 13:40] LABS: Glucose Point of Care 109 mg/dl (65-105)
[2021-06-22 15:24] LABS: Glucose Point of Care 99 mg/dl (65-105)
--- NOTE | 2021-06-22 15:55 | P.PNIM_ITS ---
Progress Note: A&P Assessment and Plan (1) Acute kidney injury superimposed on CKD: Code(s): N17.9 - Acute kidney failure, unspecified; N18.9 - Chronic kidney disease, unspecified Status: Acute Assessment and Plan: * Baseline 1.0-1.6 * Back to baseline at 1.00 * secondary to GI losses, poor p.o. intake, use of diuretics. * IV fluids--received 2L from the ED * Restart home Furosemide 20 mg p.o. tablet daily * hold losartan * trend BUN and creatinine * labs in the a.m. * urine cultures pending * UA shows positive nitrates * intake and output daily (2) Weakness: Code(s): R53.1 - Weakness Status: Acute Assessment and Plan: * patient does have signs of anemia * H&H this morning was 8.7/31.1 yesterday it was 8.7/30.7 * secondary to chronic illness, recent back surgery, deconditioning * PT OT consult (3) Upper respiratory infection: Code(s): J06.9 - Acute upper respiratory infection, unspecified Status: Acute Assessment and Plan: * complaint of congestion, cough with yellow sputum production. * chest x-ray clear * 1 g of ceftriaxone given in the ED * white blood cell count is 6.3 * trend white blood cell count * blood cultures were not drawn prior to ceftriaxone * will consider getting blood cultures in the morning depending on the patient's course * COVID swab is pending (4) Degenerative lumbar spinal stenosis: Code(s): M48.061 - Spinal stenosis, lumbar region without neurogenic claudication Status: Acute Assessment and Plan: * status post bilateral knee replacement * is status post a lumbar laminectomy * supportive care * Continue home baclofen 20 mg p.o. t.i.d. (5) Type 2 diabetes mellitus with chronic kidney disease, without long-term current use of insulin: Code(s): E11.22 - Type 2 diabetes mellitus with diabetic chronic kidney disease Status: Chronic Assessment and Plan: * glucose this morning is 82 * Accu-Cheks AC and HS * insulin sliding scale as needed * holding metformin * hypoglycemia protocol * trend labs * labs in the a.m. * adjust medications as needed (6) Irritable bowel syndrome: Code(s): K58.9 - Irritable bowel syndrome without diarrhea Status: Acute Assessment and Plan: * follow-up in outpatient setting (7) Anemia: Code(s): D64.9 - Anemia, unspecified Status: Acute Assessment and Plan: * H&H is 8.7/31.1 today * H&H yesterday was 8.7/30.7 * anemia labs -iron 17, TIBC 408,% saturation 4, ferritin 29.5, transferrin is 304, LDH 985, B12 230, folate less than 20 * will start patient on oral iron * trend H&H * labs in the morning * will consider an occult blood due to complaints of diarrhea for long period of time Time Spent With Patient Time with patient: Greater than 35 minutes Subjective Date/time seen: 06/22/21 14:45 Interval history: This is a 75-year-old female with past medical history significant for hypertension, GERD, irritable bowel syndrome, diverticulosis, degenerative joint disease, recent back surgery in January of 2021 who presented to the ED for evaluation of diarrhea, cough, congestion. patient an EGD and colonoscopy today which a large polyp was found and removed. The bleeding was controlled. Patient was advanced to a regular diet, and has an appetite. I did tell her that her labs look stable. I call Dr. Beny jimenez
--- NOTE | 2021-06-22 15:55 | PM.IMPN ---
Progress Note: A&P Assessment and Plan (1) Acute kidney injury superimposed on CKD: Code(s): N17.9 - Acute kidney failure, unspecified; N18.9 - Chronic kidney disease, unspecified Status: Acute Assessment and Plan: Baseline 1.0-1.6 Back to baseline at 1.00 secondary to GI losses, poor p.o. intake, use of diuretics. IV fluids--received 2L from the ED Restart home Furosemide 20 mg p.o. tablet daily hold losartan trend BUN and creatinine labs in the a.m. urine cultures pending UA shows positive nitrates intake and output daily (2) Weakness: Code(s): R53.1 - Weakness Status: Acute Assessment and Plan: patient does have signs of anemia H&H this morning was 8.7/31.1 yesterday it was 8.7/30.7 secondary to chronic illness, recent back surgery, deconditioning PT OT consult (3) Upper respiratory infection: Code(s): J06.9 - Acute upper respiratory infection, unspecified Status: Acute Assessment and Plan: complaint of congestion, cough with yellow sputum production. chest x-ray clear 1 g of ceftriaxone given in the ED white blood cell count is 6.3 trend white blood cell count blood cultures were not drawn prior to ceftriaxone will consider getting blood cultures in the morning depending on the patient's course COVID swab is pending (4) Degenerative lumbar spinal stenosis: Code(s): M48.061 - Spinal stenosis, lumbar region without neurogenic claudication Status: Acute Assessment and Plan: status post bilateral knee replacement is status post a lumbar laminectomy supportive care Continue home baclofen 20 mg p.o. t.i.d. (5) Type 2 diabetes mellitus with chronic kidney disease, without long-term current use of insulin: Code(s): E11.22 - Type 2 diabetes mellitus with diabetic chronic kidney disease Status: Chronic Assessment and Plan: glucose this morning is 82 Accu-Cheks AC and HS insulin sliding scale as needed holding metformin hypoglycemia protocol trend labs labs in the a.m. adjust medications as needed (6) Irritable bowel syndrome: Code(s): K58.9 - Irritable bowel syndrome without diarrhea Status: Acute Assessment and Plan: follow-up in outpatient setting (7) Anemia: Code(s): D64.9 - Anemia, unspecified Status: Acute Assessment and Plan: H&H is 8.7/31.1 today H&H yesterday was 8.7/30.7 anemia labs -iron 17, TIBC 408,% saturation 4, ferritin 29.5, transferrin is 304, LDH 985, B12 230, folate less than 20 will start patient on oral iron trend H&H labs in the morning will consider an occult blood due to complaints of diarrhea for long period of time Time Spent With Patient Time with patient: Greater than 35 minutes Subjective Date/time seen: 06/22/21 14:45 Interval history: This is a 75-year-old female with past medical history significant for hypertension, GERD, irritable bowel syndrome, diverticulosis, degenerative joint disease, recent back surgery in January of 2021 who presented to the ED for evaluation of diarrhea, cough, congestion. patient an EGD and colonoscopy today which a large polyp was found and removed. The bleeding was controlled. Patient was advanced to a regular diet, and has an appetite. I did tell her that her labs look stable. I call Dr. Swan who said that the patient did have some breathing problems after the procedure. Patient denies chest pain, shortness of breath, nausea, vomiting, fevers, and chills. Review of Systems Review of Systems: All systems reviewed & are unremarkable except as noted in HPI and below Exam Const: General: cooperative, healthy appearing, comfortable, no acute distress, well developed, alert, awake, Physically active, anxious, ill appearing acutely and tired appearing Nutritional Appearance: average body habitus, well
[2021-06-22] MEDS: COLCHICINE 0.6 MG TABLET PO (16:48)
[2021-06-22] MEDS: metFORMIN HCL 500 MG TABLET PO (16:49)
[2021-06-22] MEDS: FERROUS SULFATE 324 MG TABLET PO (16:50)
[2021-06-22] MEDS: MAGNESIUM OXIDE 400 MG TABLET PO (16:50)
[2021-06-22] MEDS: CALCIUM CARBONATE (OSCAL) 500 MG TABLET PO (16:50)
[2021-06-22] MEDS: CHOLECALCIFEROL 1,000 UNITS TABLET 1000 UNITS PO (16:50)
[2021-06-22 18:00] LABS: Glucose Point of Care 134 mg/dl (65-105)
[2021-06-22] MEDS: ALPRAZolam (*CRX) 0.25 MG TABLET PO (20:49)
[2021-06-22] MEDS: BACLOFEN 10 MG TABLET 20 MG PO (20:49)
[2021-06-22] MEDS: LOSARTAN POTASSIUM 50 MG TABLET PO (20:50)
[2021-06-23] VITALS: BP 125/57; PULSE 85; RESP 16; TEMP 36.1; O2SAT 95
[2021-06-23 03:04] LABS: Glucose Point of Care 104 mg/dl (65-105)
[2021-06-23 04:00] VITALS: BP 124/63; PULSE 74; RESP 16; TEMP 35.8; O2SAT 97
[2021-06-23 06:57] LABS: Hematocrit 28.3 % (37.0-47.0); Hemoglobin 7.9 g/dL (12.0-15.0); Mean Corpuscular HGB Conc 27.9 g/dl (32-36); Mean Corpuscular Hemoglobin 20.5 pg (26-34); Mean Corpuscular Volume 73.3 fl (80-100); Mean Platelet Volume 10.4 fl (7.4-10.4); Platelet Count Result 192 k/mm3 (150-375); Red Blood Count 3.86 M/mm3 (4.2-5.4); Red Cell Distribution Width 19.9 % (11.5-14.5); White Blood Count 4.2 K/mm3 (4.5-10.0)
[2021-06-23 07:04] LABS: Alanine Aminotransferase 16 U/L (4-35); Albumin Level 3.6 g/dL (3.5-5.1); Alkaline Phosphatase 95 U/L (38-126); Anion Gap 10 mmol/L (8-16); Aspartate Amino Transferase 24 U/L (14-36); Bilirubin,Total 0.3 mg/dL (0.2-1.3); Blood Urea Nitrogen 18 mg/dL (7-17); Calcium 9.5 mg/dL (8.4-10.2); Carbon Dioxide 23 mmol/L (22-30); Chloride 102 mmol/L (98-107); Estimated CRCL calculation 43 ml/min; Estimated Glomerular Filt Rate 54; Glucose 99 mg/dL (65-110); Magnesium 1.8 mg/dL (1.6-2.3); Potassium 4.2 mmol/L (3.4-5.0); Sodium 135 mmol/L (137-145)
--- NOTE | 2021-06-23 07:16 | WPDGIPROGNO ---
Progress Note: A&P Assessment and Plan (1) Blood in stool: Code(s): K92.1 - Melena Status: Acute Assessment and Plan: she had a gastric polyp, actually in the pylorus that was removed. Because there was actually fresh blood on the surface of this polyp, I can assume that this was responsible at least for the heme-positive stool. I will have her call me in a few days for results but suspected is benign From my perspective she can be discharged (2) Abdominal pain: Code(s): R10.9 - Unspecified abdominal pain Status: Acute Assessment and Plan: by her description, this sounds like biliary colic. I explained to her that is possible to get sludge or stones in the bile duct even after cholecystectomy. I told her that if she has another episode, that she should call 1 of us or even come to the emergency room so that we could get blood work and see if perhaps liver enzymes or lipase is elevated. Subjective Date/time seen: 06/23/21 07:16 The patient had a good night. She is tolerating her diet. There is no sign of bleeding. She wondered if the polyp was responsible for intermittent attacks that she has had over the past 2 years. Every now and then she will have a sudden episode of pain in the subxiphoid area. It will radiate around the costal margins towards the back, last 15 minutes or so and then disappear. She has been assured that is not a heart problem. Gallbladder was removed about 15 years ago Review of Systems Review of Systems: All systems reviewed & are unremarkable except as noted in HPI and below Exam Const: General: healthy appearing and comfortable GI: Inspection: normal to inspection Auscultation: normal bowel sounds Objective Data Vital Signs Vital Signs: Vital Signs - 24 hr 06/22/21 11:37 06/22/21 12:24 06/22/21 12:34 Temperature 36.6 C Pulse Rate 94 90 88 Respiratory Rate 23 H 22 H 25 H Blood Pressure 155/84 H 115/53 L 112/50 L Pulse Oximetry 96 100 100 06/22/21 12:44 06/22/21 13:00 06/22/21 16:00 Temperature 36.2 C L 36.4 C L Pulse Rate 81 100 91 Respiratory Rate 19 20 16 Blood Pressure 109/54 L 128/65 143/66 H Pulse Oximetry 100 97 98 06/22/21 20:00 06/23/21 00:00 06/23/21 04:00 Temperature 36.4 C L 36.1 C L 35.8 C L Pulse Rate 92 85 74 Respiratory Rate 18 16 16 Blood Pressure 127/63 125/57 L 124/63 Pulse Oximetry 97 95 97 Intake/Output Intake/Output: Intake & Output 06/20/21 06/21/21 06/22/21 06/23/21 23:59 23:59 23:59 23:59 Intake Total 1000 2270 1740 1300 Balance 1000 2270 1740 1300 Meds/Results Medications: Active Medications Generic Name Dose Route Start Last Admin Trade Name Freq PRN Reason Stop Dose Admin Acetaminophen 500 mg 06/21/21 16:05 06/22/21 20:49 Acetaminophen 500 Mg Tablet PO 500 mg Q4HR PRN Administration Mild Pain (1-3) or Fever Alprazolam 0.25 mg 06/21/21 02:31 06/22/21 20:49 Alprazolam (*Crx) 0.25 Mg Tablet PO 0.25 mg BID PRN Administration anxiety Baclofen 20 mg 06/21/21 21:00 06/22/21 20:49 Baclofen 10 Mg Tablet PO 20 mg Q12HR TORI Administration Baclofen 10 mg 06/21/21 17:00 06/22/21 16:50 Baclofen 10 Mg Tablet PO 10 mg 1300,1700 TORI Administration Bisoprolol Fumarate 10 mg 06/23/21 09:00 Bisoprolol Fumarate 5 Mg Tablet PO 07/23/21 09:01 DAILY TORI Calcium Carbonate 500 mg 06/21/21 09:00 06/22/21 16:50 Calcium Carbonate (Oscal) 500 Mg Tablet PO 500 mg BID TORI Administration Colchicine 0.6 mg 06/22/21 17:00 06/22/21 16:48 Colchicine 0.6 Mg Tablet PO 0.6 mg BID TORI Administration Dextrose 12.5 gm 06/21/21 11:27 Dextrose 50% 25 Gm/50 Ml Syringe IV PUSH PRN PRN Hypoglycemia Protocol Ferrous Sulfate 324 mg 06/21/21 17:00 06/22/21 16:50 Ferrous Sulfate 324 Mg Tablet PO 324 mg BIDWM TORI Administration Fluticasone Propionate 2 spray 06/21/21 02:31 Fluticasone Propionate 0.05
[2021-06-23 08:00] VITALS: BP 147/60; PULSE 77; RESP 18; TEMP 36.4; O2SAT 98
[2021-06-23 08:06] LABS: Glucose Point of Care 96 mg/dl (65-105)
[2021-06-23] MEDS: COLCHICINE 0.6 MG TABLET PO (09:33)
[2021-06-23] MEDS: metFORMIN HCL 500 MG TABLET PO (09:33)
[2021-06-23] MEDS: LOSARTAN POTASSIUM 50 MG TABLET PO (09:33)
[2021-06-23 09:34] VITALS: PULSE 78
[2021-06-23] MEDS: CALCIUM CARBONATE (OSCAL) 500 MG TABLET PO (09:34)
[2021-06-23] MEDS: MAGNESIUM OXIDE 400 MG TABLET PO (09:34)
[2021-06-23] MEDS: LOVASTATIN 20 MG TABLET PO (09:34)
[2021-06-23] MEDS: FERROUS SULFATE 324 MG TABLET PO (09:34)
[2021-06-23] MEDS: bisoproloL fumarate 5 MG TABLET 10 MG PO (09:34)
[2021-06-23] MEDS: CHOLECALCIFEROL 1,000 UNITS TABLET 1000 UNITS PO (09:34)
[2021-06-23] MEDS: hydroCHLOROthiazide 6.25 MG TABLET PO (09:35)
[2021-06-23] MEDS: MELOXICAM 7.5 MG TABLET 15 MG PO (09:35)
[2021-06-23] MEDS: BACLOFEN 10 MG TABLET 20 MG PO (09:35)
[2021-06-23] MEDS: PANTOPRAZOLE 40 MG TABLET PO (09:35)
[2021-06-23] MEDS: FUROSEMIDE 20 MG TABLET PO (09:35)
[2021-06-23] MEDS: POTASSIUM CHLORIDE 20 MEQ TABLET PO (09:35)
--- NOTE | 2021-06-23 10:13 | P.DS_ITS ---
DS: Admitting Diagnosis Admitting Diagnosis Anemia & COVID 19 DS: Discharge Diagnosis Discharge Diagnosis (1) Acute kidney injury superimposed on CKD: Code(s): N17.9 - Acute kidney failure, unspecified; N18.9 - Chronic kidney disease, unspecified Status: Acute Assessment and Plan: * Baseline 1.0-1.6 * Back to baseline at 1.00 * secondary to GI losses, poor p.o. intake, use of diuretics. * IV fluids--received 2L from the ED * Restart home Furosemide 20 mg p.o. tablet daily * hold losartan * trend BUN and creatinine * labs in the a.m. * urine cultures pending * UA shows positive nitrates * intake and output daily BUN and creatinine her back to baseline at . urine culture was positive for Klebsiella Pnemoniae patient will be sent home on levofloxacin for 5 days (2) Weakness: Code(s): R53.1 - Weakness Status: Acute Assessment and Plan: * patient does have signs of anemia * H&H this morning was 8.7/31.1 yesterday it was 8.7/30.7 * secondary to chronic illness, recent back surgery, deconditioning * PT OT consult hemoglobin hematocrit have been stable for and 7.9 today (3) Upper respiratory infection: Code(s): J06.9 - Acute upper respiratory infection, unspecified Status: Acute Assessment and Plan: * complaint of congestion, cough with yellow sputum production. * chest x-ray clear * 1 g of ceftriaxone given in the ED * white blood cell count is 6.3 * trend white blood cell count * blood cultures were not drawn prior to ceftriaxone * will consider getting blood cultures in the morning depending on the patient's course * COVID swab is pending (4) Degenerative lumbar spinal stenosis: Code(s): M48.061 - Spinal stenosis, lumbar region without neurogenic claudication Status: Acute Assessment and Plan: * status post bilateral knee replacement * is status post a lumbar laminectomy * supportive care * Continue home baclofen 20 mg p.o. t.i.d. (5) Type 2 diabetes mellitus with chronic kidney disease, without long-term current use of insulin: Code(s): E11.22 - Type 2 diabetes mellitus with diabetic chronic kidney disease Status: Chronic Assessment and Plan: * glucose this morning is 82 * Accu-Cheks AC and HS * insulin sliding scale as needed * holding metformin * hypoglycemia protocol * trend labs * labs in the a.m. * adjust medications as needed (6) Irritable bowel syndrome: Code(s): K58.9 - Irritable bowel syndrome without diarrhea Status: Acute Assessment and Plan: * follow-up in outpatient setting (7) Anemia: Code(s): D64.9 - Anemia, unspecified Status: Acute Assessment and Plan: * H&H is 8.7/31.1 today * H&H yesterday was 8.7/30.7 * anemia labs -iron 17, TIBC 408,% saturation 4, ferritin 29.5, transferrin is 304, LDH 985, B12 230, folate less than 20 * will start patient on oral iron * trend H&H * labs in the morning * will consider an occult blood due to complaints of diarrhea for long period of time fluid continue patient on ferrous sulfate oral iron. (8) UTI (urinary tract infection): Code(s): N39.0 - Urinary tract infection, site not specified Status: Acute Assessment and Plan: * Urine culture came back positive for E coli. * UA was positive for nitrates * will send patient home on levof
--- NOTE | 2021-06-23 10:13 | PM.DS ---
DS: Admitting Diagnosis Admitting Diagnosis Anemia & COVID 19 DS: Discharge Diagnosis Discharge Diagnosis (1) Acute kidney injury superimposed on CKD: Code(s): N17.9 - Acute kidney failure, unspecified; N18.9 - Chronic kidney disease, unspecified Status: Acute Assessment and Plan: Baseline 1.0-1.6 Back to baseline at 1.00 secondary to GI losses, poor p.o. intake, use of diuretics. IV fluids--received 2L from the ED Restart home Furosemide 20 mg p.o. tablet daily hold losartan trend BUN and creatinine labs in the a.m. urine cultures pending UA shows positive nitrates intake and output daily BUN and creatinine her back to baseline at 10. urine culture was positive for Klebsiella Pnemoniae patient will be sent home on levofloxacin for 5 days (2) Weakness: Code(s): R53.1 - Weakness Status: Acute Assessment and Plan: patient does have signs of anemia H&H this morning was 8.7/31.1 yesterday it was 8.7/30.7 secondary to chronic illness, recent back surgery, deconditioning PT OT consult hemoglobin hematocrit have been stable for and 7.9 today (3) Upper respiratory infection: Code(s): J06.9 - Acute upper respiratory infection, unspecified Status: Acute Assessment and Plan: complaint of congestion, cough with yellow sputum production. chest x-ray clear 1 g of ceftriaxone given in the ED white blood cell count is 6.3 trend white blood cell count blood cultures were not drawn prior to ceftriaxone will consider getting blood cultures in the morning depending on the patient's course COVID swab is pending (4) Degenerative lumbar spinal stenosis: Code(s): M48.061 - Spinal stenosis, lumbar region without neurogenic claudication Status: Acute Assessment and Plan: status post bilateral knee replacement is status post a lumbar laminectomy supportive care Continue home baclofen 20 mg p.o. t.i.d. (5) Type 2 diabetes mellitus with chronic kidney disease, without long-term current use of insulin: Code(s): E11.22 - Type 2 diabetes mellitus with diabetic chronic kidney disease Status: Chronic Assessment and Plan: glucose this morning is 82 Accu-Cheks AC and HS insulin sliding scale as needed holding metformin hypoglycemia protocol trend labs labs in the a.m. adjust medications as needed (6) Irritable bowel syndrome: Code(s): K58.9 - Irritable bowel syndrome without diarrhea Status: Acute Assessment and Plan: follow-up in outpatient setting (7) Anemia: Code(s): D64.9 - Anemia, unspecified Status: Acute Assessment and Plan: H&H is 8.7/31.1 today H&H yesterday was 8.7/30.7 anemia labs -iron 17, TIBC 408,% saturation 4, ferritin 29.5, transferrin is 304, LDH 985, B12 230, folate less than 20 will start patient on oral iron trend H&H labs in the morning will consider an occult blood due to complaints of diarrhea for long period of time fluid continue patient on ferrous sulfate oral iron. (8) UTI (urinary tract infection): Code(s): N39.0 - Urinary tract infection, site not specified Status: Acute Assessment and Plan: Urine culture came back positive for E coli. UA was positive for nitrates will send patient home on levofloxacin for 5 days DS: Summary Hospital Course Hospital Course: This is a 75-year-old female with past medical history significant for hypertension, GERD, irritable bowel syndrome, diverticulosis, degenerative joint disease, recent back surgery in January of 2021 who presented to the ED for evaluation of diarrhea, cough, congestion. patient was found to be COVID positive. Patient has never needed oxygen however did have any episodes of diarrhea. Her stool to come back occult positive. GI was consulted patient went for an EGD and co
== END 2021-06-23 11:59 | disposition home or self-care (01) | DRG 393 ==
LOC: ANHED 23:27 → ANH3MEDSUR 23:41
PROVIDERS: Emergency Medicine; Internal Medicine Gastroenterology; Admitting Provider Internal Medicine; Emergency Provider Emergency Medicine; PCP Family Medicine; Visit Provider Nurse Practitioner
PROC: 0DJ08ZZ Inspection of Upper Intestinal Tract, Via Natural or Artificial Opening Endoscopic (ICD-10-PCS; CPT 43235; principal; 2021-06-22 12:00)
DX: K31.7 Polyp of stomach and duodenum (principal); U07.1 COVID-19; N17.9 Acute kidney failure, unspecified; N39.0 Urinary tract infection, site not specified; D62 Acute posthemorrhagic anemia; B96.1 Klebsiella pneumoniae [K. pneumoniae] as the cause of diseases classified elsewhere; K44.9 Diaphragmatic hernia without obstruction or gangrene; K57.30 Diverticulosis of large intestine without perforation or abscess without bleeding; E86.0 Dehydration; K21.9 Gastro-esophageal reflux disease without esophagitis; K58.9 Irritable bowel syndrome, unspecified; I12.9 Hypertensive chronic kidney disease with stage 1 through stage 4 chronic kidney disease, or unspecified chronic kidney disease; F32.89 Other specified depressive episodes; F43.20 Adjustment disorder, unspecified; N18.30 Chronic kidney disease, stage 3 unspecified; E66.01 Morbid (severe) obesity due to excess calories; E11.22 Type 2 diabetes mellitus with diabetic chronic kidney disease; N18.9 Chronic kidney disease, unspecified; E11.21 Type 2 diabetes mellitus with diabetic nephropathy; M85.80 Other specified disorders of bone density and structure, unspecified site; K75.81 Nonalcoholic steatohepatitis (NASH); N39.46 Mixed incontinence; M48.061 Spinal stenosis, lumbar region without neurogenic claudication; D63.8 Anemia in other chronic diseases classified elsewhere; J06.9 Acute upper respiratory infection, unspecified; M21.42 Flat foot [pes planus] (acquired), left foot; M21.41 Flat foot [pes planus] (acquired), right foot; M13.812 Other specified arthritis, left shoulder; M13.879 Other specified arthritis, unspecified ankle and foot; Z96.653 Presence of artificial knee joint, bilateral; Z90.710 Acquired absence of both cervix and uterus; Z68.33 Body mass index [BMI] 33.0-33.9, adult
CPT/HCPCS: 36415; 71046; 80048; 80053; 81001; 82274; 82607; 82728; 82746; 82948; 83540; 83550; 83615; 83735; 83880; 84443; 84466; 84484; 85025; 85027; 85046; 85055; 86850; 86900; 86901; 87077; 87086; 87088; 87186; 87324; 88305; 93005; 96361; 96365; 97161; 97165; 99285; A9270; C9803; G0378; J0171; J0696; J2001; J2704; J7030; J7120; U0003; U0005

== ENCOUNTER → 2021-08-30 02:52 | Outpatient (CLI) | payer MEDICARE, SELFPAY ==
[2021-08-30 19:13] LABS: SARS-CoV-2 RNA PCR Negative
== END ==
PROVIDERS: PCP Family Medicine; Visit Provider Family Medicine
DX: Z20.822 Contact with and (suspected) exposure to COVID-19 (principal); R09.89 Other specified symptoms and signs involving the circulatory and respiratory systems; R06.7 Sneezing; R53.83 Other fatigue
CPT/HCPCS: C9803; U0003; U0005

== ENCOUNTER 2021-09-03 11:45 | Emergency (ER) | payer MEDICARE, SELFPAY ==
[2021-09-03 11:53] VITALS: BP 151/64; PULSE 71; RESP 16; TEMP 36.5; O2SAT 98
--- NOTE | 2021-09-03 12:18 | ED.BACK ---
HPI - Back Pain/Injury General Chief Complaint: Back Pain/Injury Stated Complaint: Back Pain Time Seen by Provider: 09/03/21 12:19 Source: patient, RN notes reviewed and old records reviewed Mode of arrival: ambulatory Limitations: no limitations History of Present Illness HPI Narrative: 75-year-old female who presents to [facility] with complaints of 2-week duration of increased pain in her lumbar back region on the left sciatic area with pain stated acute to right lower back at SI joint area starting yesterday. Patient states that sciatica on left side comes and goes with some tingling down front of left leg to knee and into groin. Patient denies any difficulty with bowels or bladder. She has been taking her Tramadol with last dose yesterday, has taken Tylenol and Baclofen today and is using local pain patches to lower back.Patient uses walker for ambulation and wears a back support. Patient had lumbar fusion at [facility] in January of this year. She states that she called her surgeons office and plans on calling again on Sunday. MD elicited complaint: back pain Pertinent past history: prior back pain and back surgery (January 2021) Related Data Home Medications Medication Instructions Recorded Confirmed calcium carbonate 600 mg calcium 600 mg PO BID 07/12/20 07/28/21 (1,500 mg) tablet cholecalciferol (vitamin D3) 25 25 mcg PO BID 07/12/20 07/28/21 mcg (1,000 unit) capsule magnesium 250 mg tablet 500 mg PO BID tablet 07/12/20 07/28/21 Salonpas 0.93 % TOPICAL DAILY 06/21/21 07/28/21 Zyrtec See Rx Instructions .ROUTE 06/21/21 07/28/21 .COMPLEX PRN fluticasone propionate [Flonase 2 spray NASAL DAILY PRN 06/21/21 07/28/21 Allergy Relief] meloxicam 15 mg PO DAILY 06/21/21 07/28/21 tramadol mg 09/03/21 Allergies Allergy/AdvReac Type Severity Reaction Status Date / Time Sulfa (Sulfonamide Allergy Mild UNSURE Verified 07/28/21 10:58 Antibiotics) methotrexate Allergy Unknown Unknown Verified 07/28/21 10:58 mirabegron Allergy Unknown Dyspnea / Verified 07/28/21 10:58 SOB Penicillins Allergy Unknown Hives Verified 07/28/21 10:58 sulfamethizole Allergy Unknown Nausea Verified 07/28/21 10:58 Review of Systems Review of Systems: CONSTITUTIONAL: Denies fever, chills, or sweats. EYES: Denies visual changes, redness, or discharge. ENT: Denies rhinorrhea, congestion, sore throat, or otalgia. CARDIOVASCULAR: Denies chest pain, palpitations, or edema. RESPIRATORY: Denies cough or dyspnea. GASTROINTESTINAL: Denies abdominal pain, nausea, vomiting, or diarrhea. GENITOURINARY: Denies dysuria or hematuria. SKIN: Denies rash or itching. MUSCULOSKELETAL: Positive for intermittent left sciatic back pain and acute right sided back pain in SI area with no radiation down leg, no other stated joint pain, or myalgia. NEUROLOGIC: Denies headache, positive for some numbness and tingling intermittent to left anterior leg and groin, or weakness. PSYCHIATRIC: Positive for history of anxiety or depression. All systems reviewed & are unremarkable except as noted in HPI and below PMFSH Past Medical History Medical History (Updated 09/04/21 @ 00:00 by Background Daemon) Acute kidney failure, unspecified Acute kidney injury superimposed on CKD Adjustment disorder with depressed mood Arthritis of foot, degenerative Arthritis of left shoulder region Chronic pain Chronic pulmonary edema CKD (chronic kidney disease) stage 3, GFR 30-59 ml/min Compression fracture of body of thoracic vertebra COVID-19 Degenerative lumbar spinal stenosis Dehydration Essential (primary) hypertension Familial chondrocalcinosis, unspecified site Mastitis, right, acute Mixed stress and urge urinary incontinence Nonalcoholic steatohepatitis ([place]) Obesity (BMI 30.0-34.9) Osteopenia Other specified crystal arthropathies, unspecified site Pes planus of both feet Primary pulmonary hypertension Pseudogout Rotator cuff tear Spinal stenosis, unspecified region oth
== END 2021-09-03 12:50 | disposition home or self-care (01) ==
PROVIDERS: Emergency Provider Registered Nurse; PCP Family Medicine
DX: M54.41 Lumbago with sciatica, right side (principal); I12.9 Hypertensive chronic kidney disease with stage 1 through stage 4 chronic kidney disease, or unspecified chronic kidney disease; E11.22 Type 2 diabetes mellitus with diabetic chronic kidney disease; N18.30 Chronic kidney disease, stage 3 unspecified; M19.079 Primary osteoarthritis, unspecified ankle and foot; M19.012 Primary osteoarthritis, left shoulder; J81.1 Chronic pulmonary edema; Z86.16 Personal history of COVID-19; M48.061 Spinal stenosis, lumbar region without neurogenic claudication; K75.81 Nonalcoholic steatohepatitis (NASH); E66.9 Obesity, unspecified; Z68.33 Body mass index [BMI] 33.0-33.9, adult; Z79.4 Long term (current) use of insulin; E11.42 Type 2 diabetes mellitus with diabetic polyneuropathy; Z96.659 Presence of unspecified artificial knee joint
CPT/HCPCS: 99213; G0463

== ENCOUNTER 2021-09-10 18:02 | Emergency (ER) | payer MEDICARE, SELFPAY ==
[2021-09-10] VITALS (9 sets, daily range): BP systolic 155–162; BP diastolic 75–101; PULSE 83–98; RESP 14–21; TEMP 36.4; O2SAT 98–100
--- NOTE | ~2021-09-10 | XR_ITS ---
EXAMINATION: XR chest 1V DATE: 09/10/2021 18:33 INDICATION: Left chest pain. TECHNIQUE: A single frontal view of the chest was obtained. COMPARISON: Chest 2 views 06/20/2021 FINDINGS: A calcified right lung nodule and calcified right hilar lymph nodes are consistent with old granulomatous disease. No pleural effusion or pneumothorax. The heart size is normal. There is a lef t shoulder arthroplasty. There are suture anchors in right humeral head. IMPRESSION: 1. No acute cardiopulmonary disease. Reviewed, dictated and finalized at location A.
--- NOTE | 2021-09-10 18:04 | ECG_ITS ---
Measurements Intervals [place] Rate: 89 P: 21 CT: 159 QRS: -28 QRSD: 90 T: 41 QT: 351 QTc: 428 Interpretive Statements SINUS RHYTHM VOLTAGE CRITERIA FOR LVH BORDERLINE ECG Electronically Signed On 09-10-2021 18:20:18 CDT by Michael Moreno D.O.
[2021-09-10 18:30] LABS: Basophils Percent Auto 0.4 % (0.2-1.2); Eosinophils Absolute Auto 0.1 K/mm3 (0-0.3); Eosinophils Percent Auto 0.5 % (0-4.4); Hematocrit 36.2 % (37.0-47.0); Hemoglobin 10.7 g/dL (12.0-15.0); Immature Granulocyte Absolute 0.05 K/mm3 (0.00-0.031); Immature Granulocyte Percent A 0.5 % (0-0.5); Lymphocytes Absolute Auto 1.89 K/mm3 (0.9-3.2); Lymphocytes Percent Auto 18.2 % (18.3-44.2); Mean Corpuscular HGB Conc 29.6 g/dl (32-36); Mean Corpuscular Hemoglobin 21.9 pg (26-34); Mean Corpuscular Volume 74.2 fl (80-100); Mean Platelet Volume 9.4 fl (7.4-10.4); Monocytes Absolute Auto 0.8 K/mm3 (0.1-0.6); Monocytes Percent Auto 7.7 % (2.6-8.5); Neutrophils Absolute Auto 7.5 K/mm3 (1.3-6.7); Neutrophils Percent Auto 72.7 % (45.5-73.1); Platelet Count Result 259 k/mm3 (150-375); Red Blood Count 4.88 M/mm3 (4.2-5.4); Red Cell Distribution Width 18.9 % (11.5-14.5); White Blood Count 10.4 K/mm3 (4.5-10.0)
[2021-09-10 18:38] LABS: Prothrombin Time 12.7 Seconds (11.1-14.7)
[2021-09-10 18:39] LABS: Anion Gap 12 mmol/L (8-16); Blood Urea Nitrogen 21 mg/dL (7-17); Calcium 10.3 mg/dL (8.4-10.2); Carbon Dioxide 30 mmol/L (22-30); Chloride 91 mmol/L (98-107); Estimated CRCL calculation 34 ml/min; Estimated Glomerular Filt Rate 40; Glucose 119 mg/dL (65-110); Partial Thromboplastin Time 25.9 SECONDS (22.3-36.8); Potassium 4.3 mmol/L (3.4-5.0); Sodium 133 mmol/L (137-145)
[2021-09-10 18:51] LABS: Troponin I < 0.012 ng/mL (0.000-0.034)
[2021-09-10 19:04] LABS: Anisocytosis 2+ (NORMAL); Hypochromasia 1+ (NORMAL); Platelet Estimate Adequate (Adequate)
--- NOTE | 2021-09-10 19:18 | ED.CHESTPAIN ---
HPI - Chest Pain General Chief Complaint: Chest Pain Stated Complaint: cp Time Seen by Provider: 09/10/21 19:13 Source: patient, RN notes reviewed and old records reviewed Mode of arrival: ambulatory Limitations: no limitations History of Present Illness HPI narrative: Patient 75 years old white female presents to the ED complaining of soreness across the chest started yesterday afternoon, off and on lasted for maximum 1 hour then resolved, at rest, radiating to the back and chin area. Patient had similar symptom in the past without specific diagnosis. Patient woke up this morning with nausea and dry heaves and kept to gagging all day long. Patient denies any chest pain today or shortness of breath. Patient lives alone, drove herself to the emergency room. History of hypertension, diabetes, hyperlipidemia, IBS, depression, anxiety, chronic kidney disease. Related Data Home Medications Medication Instructions Recorded Confirmed calcium carbonate 600 mg calcium 600 mg PO BID 07/12/20 07/28/21 (1,500 mg) tablet cholecalciferol (vitamin D3) 25 25 mcg PO BID 07/12/20 07/28/21 mcg (1,000 unit) capsule magnesium 250 mg tablet 500 mg PO BID tablet 07/12/20 07/28/21 Salonpas 0.93 % TOPICAL DAILY 06/21/21 07/28/21 Zyrtec See Rx Instructions .ROUTE 06/21/21 07/28/21 .COMPLEX PRN fluticasone propionate [Flonase 2 spray NASAL DAILY PRN 06/21/21 07/28/21 Allergy Relief] meloxicam 15 mg PO DAILY 06/21/21 07/28/21 tramadol mg 09/03/21 Allergies Allergy/AdvReac Type Severity Reaction Status Date / Time Sulfa (Sulfonamide Allergy Mild UNSURE Verified 09/10/21 19:38 Antibiotics) methotrexate Allergy Unknown Unknown Verified 09/10/21 19:38 mirabegron Allergy Unknown Dyspnea / Verified 09/10/21 19:38 SOB Penicillins Allergy Unknown Hives Verified 09/10/21 19:38 sulfamethizole Allergy Unknown Nausea Verified 09/10/21 19:38 Review of Systems Review of Systems: CONSTITUTIONAL: Denies fever, chills, or sweats. EYES: Denies visual changes, redness, or discharge. ENT: Denies rhinorrhea, congestion, sore throat, or otalgia. CARDIOVASCULAR: Denies chest pain, palpitations, or edema. RESPIRATORY: Denies cough or dyspnea. GASTROINTESTINAL: Denies abdominal pain, nausea, vomiting, or diarrhea. GENITOURINARY: Denies dysuria or hematuria. SKIN: Denies rash or itching. MUSCULOSKELETAL: Denies back pain, joint pain, or myalgia. NEUROLOGIC: Denies headache, numbness, or weakness. PSYCHIATRIC: Denies anxiety or depression. [facility] Past Medical History Medical History Acute kidney failure, unspecified Acute kidney injury superimposed on CKD Adjustment disorder with depressed mood Arthritis of foot, degenerative Arthritis of left shoulder region Chronic pain Chronic pulmonary edema CKD (chronic kidney disease) stage 3, GFR 30-59 ml/min Compression fracture of body of thoracic vertebra COVID-19 Degenerative lumbar spinal stenosis Dehydration Essential (primary) hypertension Familial chondrocalcinosis, unspecified site Mastitis, right, acute Mixed stress and urge urinary incontinence Nonalcoholic steatohepatitis ([place]) Obesity (BMI 30.0-34.9) Osteopenia Other specified crystal arthropathies, unspecified site Pes planus of both feet Primary pulmonary hypertension Pseudogout Rotator cuff tear Spinal stenosis, unspecified region other than cervical Type 2 diabetes mellitus with chronic kidney disease, 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
[2021-09-10] MEDS: ASPIRIN 81 MG CHEWABLE TABLET 324 MG PO (19:36)
[2021-09-10] MEDS: SODIUM CHLORIDE 0.9% IV 1,000 ML 999 ML IV CONT (20:06)
[2021-09-10 20:12] LABS: Alanine Aminotransferase 23 U/L (4-35); Albumin Level 4.9 g/dL (3.5-5.1); Alkaline Phosphatase 107 U/L (38-126); Aspartate Amino Transferase 26 U/L (14-36); Bilirubin,Total 0.5 mg/dL (0.2-1.3)
== END 2021-09-10 21:41 | disposition home or self-care (01) ==
PROVIDERS: Emergency Provider Emergency Medicine; PCP Family Medicine
DX: R07.9 Chest pain, unspecified (principal); E86.0 Dehydration; E11.22 Type 2 diabetes mellitus with diabetic chronic kidney disease; I12.9 Hypertensive chronic kidney disease with stage 1 through stage 4 chronic kidney disease, or unspecified chronic kidney disease; N18.30 Chronic kidney disease, stage 3 unspecified; E78.5 Hyperlipidemia, unspecified; E11.21 Type 2 diabetes mellitus with diabetic nephropathy; K58.9 Irritable bowel syndrome, unspecified; Z86.16 Personal history of COVID-19; K75.81 Nonalcoholic steatohepatitis (NASH); N39.46 Mixed incontinence; M85.80 Other specified disorders of bone density and structure, unspecified site; M21.42 Flat foot [pes planus] (acquired), left foot; M21.41 Flat foot [pes planus] (acquired), right foot; M19.079 Primary osteoarthritis, unspecified ankle and foot; M19.012 Primary osteoarthritis, left shoulder; M11.1 Familial chondrocalcinosis; E66.9 Obesity, unspecified; Z68.32 Body mass index [BMI] 32.0-32.9, adult; Z87.440 Personal history of urinary (tract) infections; Z96.659 Presence of unspecified artificial knee joint; Z98.1 Arthrodesis status; R94.31 Abnormal electrocardiogram [ECG] [EKG]
CPT/HCPCS: 36415; 71045; 80048; 80076; 84484; 85025; 85610; 85730; 93005; 96360; 99284; A9270; J7030

== ENCOUNTER 2021-09-12 12:07 | Emergency (ER) | payer MEDICARE, SELFPAY ==
--- NOTE | ~2021-09-12 | CT_ITS ---
EXAMINATION: CT abdomen pelvis wo con DATE: 09/12/2021 14:56 INDICATION: Abdominal pain. Nausea and vomiting. TECHNIQUE: Computed tomography (CT) of the abdomen and pelvis was performed without intravenous contr ast. Automated exposure control and iterative reconstruction technique were employed. The dose-length product was 858.76 mGy-cm. COMPARISON: CT abdomen and pelvis 07/20/2010 FINDINGS: The visualized portions of the lung bases demonstrate mild atelectasis and mild chronic hilaria g disease. A calcified right lung nodule and calcified right hilar and mediastinal lymph nodes are co nsistent with old granulomatous disease. No pleural effusion. The heart size is normal. There are cor onary artery calcifications. No pericardial effusion. Calcifications in the liver and spleen are cons istent with old granulomatous disease. There are changes of cholecystectomy. The pancreas and adrenal glands are normal. There are cysts in the kidneys measuring up to 1.7 cm on the right. There is no u rolithiasis. There is diverticulosis of the colon without evidence of diverticulitis. There are no di lated loops of bowel. The appendix is normal. There is an umbilical hernia containing fat. There are no pathologically enlarged lymph nodes. There is no free intraperitoneal fluid. There is severe thora cic and lumbar spondylosis. There are changes of posterior fusion procedure from L3 to L5. There are changes of anterior fusion procedure at L3-L4. IMPRESSION: 1. Umbilical hernia containing fat. Reviewed, dictated and finalized at location A.
[2021-09-12 12:22] VITALS: BP 135/73; PULSE 75; RESP 16; TEMP 36.6; O2SAT 99
--- NOTE | 2021-09-12 12:28 | ECG_ITS ---
Measurements Intervals [place] Rate: 75 P: 21 RI: 182 QRS: -24 QRSD: 92 T: 27 QT: 376 QTc: 422 Interpretive Statements SINUS RHYTHM VENTRICULAR PREMATURE COMPLEX DELAYED PRECORDIAL R/S TRANSITION VOLTAGE CRITERIA FOR LVH BASELINE ARTIFACT- I, III, AVL BORDERLINE ECG Electronically Signed On 09-12-2021 13:00:00 CDT by Michael Moreno D.O.
[2021-09-12 12:46] LABS: Basophils Percent Auto 0.3 % (0.2-1.2); Eosinophils Absolute Auto 0.1 K/mm3 (0-0.3); Eosinophils Percent Auto 0.9 % (0-4.4); Hemoglobin 10.5 g/dL (12.0-15.0); Immature Granulocyte Absolute 0.06 K/mm3 (0.00-0.031); Immature Granulocyte Percent A 0.5 % (0-0.5); Lymphocytes Absolute Auto 2.21 K/mm3 (0.9-3.2); Lymphocytes Percent Auto 19.3 % (18.3-44.2); Mean Corpuscular HGB Conc 29.2 g/dl (32-36); Mean Corpuscular Hemoglobin 22.1 pg (26-34); Mean Corpuscular Volume 75.8 fl (80-100); Mean Platelet Volume 9.3 fl (7.4-10.4); Monocytes Percent Auto 8.4 % (2.6-8.5); Neutrophils Absolute Auto 8.1 K/mm3 (1.3-6.7); Neutrophils Percent Auto 70.6 % (45.5-73.1); Platelet Count Result 251 k/mm3 (150-375); Red Blood Count 4.75 M/mm3 (4.2-5.4); White Blood Count 11.5 K/mm3 (4.5-10.0)
[2021-09-12 13:01] LABS: Alanine Aminotransferase 22 U/L (4-35); Alkaline Phosphatase 103 U/L (38-126); Anion Gap 12 mmol/L (8-16); Aspartate Amino Transferase 25 U/L (14-36); Bilirubin,Total 0.8 mg/dL (0.2-1.3); Blood Urea Nitrogen 21 mg/dL (7-17); Carbon Dioxide 27 mmol/L (22-30); Chloride 92 mmol/L (98-107); Estimated CRCL calculation 26 ml/min; Estimated Glomerular Filt Rate 29; Glucose 105 mg/dL (65-110); Lipase 90 U/L (23-300); Potassium 3.9 mmol/L (3.4-5.0); Sodium 131 mmol/L (137-145)
[2021-09-12 14:08] LABS: Troponin I < 0.012 ng/mL (0.000-0.034)
[2021-09-12 15:50] VITALS: BP 110/62; PULSE 80; RESP 20; O2SAT 88
[2021-09-12 16:02] LABS: Add Urine Microscopic? YES; Appearance Urine Clear (Clear); Bilirubin Urine Negative (Negative); Blood Urine Negative (Negative); Color Urine Yellow (Yellow); Glucose Urine UA Negative (Negative); Ketones Urine Negative (Negative); Leukocyte Esterase Ur 2+ LEU/UL (Negative); Mucus Urine Rare /lpf; Nitrate Urine Positive (Negative); Protein Urine Negative (Negative); RBC Urine 0-2 /hpf (0-2); Specific Grav Ur 1.006 (1.001-1.035); Squamous Epithelial Cell Urine Rare /hpf (Few); Transitional Epi Cells Urine Rare /hpf (None Seen); Urobilinogen Urine Negative mg/dL (<2.0); WBC Urine 21-30 /hpf
[2021-09-12 16:22] LABS: Troponin I < 0.012 ng/mL (0.000-0.034)
--- NOTE | 2021-09-12 16:29 | ED.ABDPAIN ---
HPI - Abdominal Pain General Chief Complaint: Abdominal Pain Stated Complaint: chest pain Time Seen by Provider: 09/12/21 12:39 Source: patient Mode of arrival: ambulatory Limitations: no limitations History of Present Illness HPI narrative: Patient presents with chief complaint of now resolved epigastric discomfort. She reports that she was seen in his emergency department on Sunday with chief complaint of epigastric discomfort that went around under her breast and up into her left shoulder and jaw. Patient is a that she was evaluated and diagnosed home with diagnosis of anxiety. Patient states that at that time her symptoms resolved within 1 hour. Patient states that she had the symptoms earlier today without the radiation and they also resolved without intervention. Patient states that she called her primary care provider and was told to present to the emergency department for evaluation. Patient reports that she had these epigastric discomfort earlier this year and had a EGD and colonoscopy performed and the only thing that was found was a polyp. Patient reports that she has been diagnosed with GERD so she takes omeprazole daily. Patient denies any pain at this time. She reports that her symptoms generally occur 30 minutes to hour after eating the last 1-hour then resolve. Patient reports that her gallbladder has been removed. Patient denies any chest pain, shortness of breath, fever, chills, diarrhea or constipation. Related Data Home Medications Medication Instructions Recorded Confirmed calcium carbonate 600 mg calcium 600 mg PO BID 07/12/20 07/28/21 (1,500 mg) tablet cholecalciferol (vitamin D3) 25 25 mcg PO BID 07/12/20 07/28/21 mcg (1,000 unit) capsule magnesium 250 mg tablet 500 mg PO BID tablet 07/12/20 07/28/21 Salonpas 0.93 % TOPICAL DAILY 06/21/21 07/28/21 Zyrtec See Rx Instructions .ROUTE 06/21/21 07/28/21 .COMPLEX PRN fluticasone propionate [Flonase 2 spray NASAL DAILY PRN 06/21/21 07/28/21 Allergy Relief] meloxicam 15 mg PO DAILY 06/21/21 07/28/21 tramadol mg 09/03/21 Allergies Allergy/AdvReac Type Severity Reaction Status Date / Time Sulfa (Sulfonamide Allergy Mild UNSURE Verified 09/10/21 19:38 Antibiotics) methotrexate Allergy Unknown Unknown Verified 09/10/21 19:38 mirabegron Allergy Unknown Dyspnea / Verified 09/10/21 19:38 SOB Penicillins Allergy Unknown Hives Verified 09/10/21 19:38 sulfamethizole Allergy Unknown Nausea Verified 09/10/21 19:38 Review of Systems Review of Systems: CONSTITUTIONAL: Denies fever, chills, or sweats. EYES: Denies visual changes, redness, or discharge. ENT: Denies rhinorrhea, congestion, sore throat, or otalgia. CARDIOVASCULAR: Denies chest pain, palpitations, or edema. RESPIRATORY: Denies cough or dyspnea. GASTROINTESTINAL: Reports resolved abdominal pain, nausea, vomiting, denies diarrhea. GENITOURINARY: Denies dysuria or hematuria. SKIN: Denies rash or itching. MUSCULOSKELETAL: Denies back pain, joint pain, or myalgia. NEUROLOGIC: Denies headache, numbness, dizziness, or weakness. PSYCHIATRIC: Denies anxiety or depression. [facility] Past Medical History Medical History Acute kidney failure, unspecified Acute kidney injury superimposed on CKD Adjustment disorder with depressed mood Arthritis of foot, degenerative Arthritis of left shoulder region Chronic pain Chronic pulmonary edema CKD (chronic kidney disease) stage 3, GFR 30-59 ml/min Compression fracture of body of thoracic vertebra COVID-19 Degenerative lumbar spinal stenosis Dehydration Essential (primary) hypertension Familial chondrocalcinosis, unspecified site Mastitis, right, acute Mixed stress and urge urinary incontinence Nonalcoholic steatohepatitis ([place]) Obesity (BMI 30.0-34.9) Osteopenia Other specified crystal arthropathies, unspecified site Pes planus of both feet Primary pulmonary hypertension Pseudogout Rotator cuff tear S
[2021-09-12 17:10] VITALS: BP 120/65; PULSE 80; RESP 20; O2SAT 100
== END 2021-09-12 17:20 | disposition home or self-care (01) ==
PROVIDERS: Physician Assistant; Emergency Provider Emergency Medicine; PCP Family Medicine
DX: K80.50 Calculus of bile duct without cholangitis or cholecystitis without obstruction (principal); N39.0 Urinary tract infection, site not specified; E11.22 Type 2 diabetes mellitus with diabetic chronic kidney disease; I12.9 Hypertensive chronic kidney disease with stage 1 through stage 4 chronic kidney disease, or unspecified chronic kidney disease; N18.30 Chronic kidney disease, stage 3 unspecified; E78.5 Hyperlipidemia, unspecified; E11.21 Type 2 diabetes mellitus with diabetic nephropathy; K58.9 Irritable bowel syndrome, unspecified; Z86.16 Personal history of COVID-19; K75.81 Nonalcoholic steatohepatitis (NASH); N39.46 Mixed incontinence; M85.80 Other specified disorders of bone density and structure, unspecified site; M21.41 Flat foot [pes planus] (acquired), right foot; M21.42 Flat foot [pes planus] (acquired), left foot; M19.079 Primary osteoarthritis, unspecified ankle and foot; M19.012 Primary osteoarthritis, left shoulder; M11.1 Familial chondrocalcinosis; E66.9 Obesity, unspecified; Z68.32 Body mass index [BMI] 32.0-32.9, adult; Z96.659 Presence of unspecified artificial knee joint; Z98.1 Arthrodesis status; K42.9 Umbilical hernia without obstruction or gangrene; I49.3 Ventricular premature depolarization; R94.31 Abnormal electrocardiogram [ECG] [EKG]
CPT/HCPCS: 36415; 74176; 80053; 81001; 83690; 84484; 85025; 87077; 87086; 87088; 87186; 93005; 99284

== ENCOUNTER 2021-10-02 08:24 | Outpatient (CLI) | payer MEDICARE, SELFPAY ==
--- NOTE | ~2021-10-02 | MR_ITS ---
EXAMINATION: MR MRCP wo con/w 3D wo ind pp DATE: 10/02/2021 10:28 INDICATION: Calculus of the common bile duct without cholangitis TECHNIQUE: Magnetic resonance imaging (MRI) of the abdomen was performed without intravenous contrast . Sequences included coronal T2-weighted SS-FSE ARC, coronal T2-weighted FS SS-FSE, coronal T2-weight ed 2D FS FIESTA, Water:Coronal LAVA-Flex, sagittal T2-weighted SS-FSE ARC, axial SSFSE ARC, axial 3D DualEcho, axial DWI B=600, axial T1-weighted LAVA, FAT:Coronal LAVA-Flex, and coronal in and opposed phase LAVA-Flex. Thick-slab T2-weighted FRFSE-XL images were obtained for magnetic resonance cholangi opancreatography (MRCP). Maximum intensity projection 3-D reconstructions of the volumetric data were created by the technologist. COMPARISON: CT, 09/12/2021 CONTRAST: None FINDINGS: ABDOMEN MRI: There is a 5 mm cyst in the left hepatic lobe. The spleen and adrenal glands are normal. The gallbladder is surgically absent. There is a 4 mm cystic lesion in the body of the pancreas. Cys ts of the kidneys measure up to 2.1 cm on the right. There are no pathologically enlarged abdominal l ymph nodes. ABDOMEN MRCP: There is mild intrahepatic and extrahepatic biliary dilatation, consistent with post ch olecystectomy state. No biliary stones or stricture are identified. Pancreas divisum is noted. IMPRESSION: 1. No biliary stones or stricture identified. 2. 4 mm cystic lesion in the body of the pancreas. The differential diagnosis includes pseudocyst, in traductal papillary mucinous neoplasm (IPMN), mucinous cystic neoplasm (MCN), and the less common ser ous cystadenoma and neuroendocrine tumor. Correlate for history of pancreatitis. Follow-up pancreas p rotocol CT or MRI in two years is recommended. Reviewed, dictated and finalized at location B. FACTURING CONTROLLER IMPRESSION: 1. No biliary stones or stricture identified. 2. 4 mm cystic lesion in the body of the pancreas. The differential diagnosis i ncludes pseudocyst, intraductal papillary mucinous neoplasm (IPMN), mucinous cy stic neoplasm (MCN), and the less common serous cystadenoma and neuroendocrine tumor. Correlate for history of pancreatitis. Follow-up pancreas protocol CT or MRI in two years is recommended.
== END 2021-10-02 08:25 | disposition home or self-care (01) ==
PROVIDERS: PCP Family Medicine; Visit Provider Internal Medicine Gastroenterology
DX: K80.50 Calculus of bile duct without cholangitis or cholecystitis without obstruction (principal); K86.89 Other specified diseases of pancreas
CPT/HCPCS: 74181; 76376

== ENCOUNTER 2022-01-07 15:05 | Emergency (ER) | payer MEDICARE, SELFPAY ==
[2022-01-07] VITALS (23 sets, daily range): BP systolic 164–195; BP diastolic 65–95; PULSE 66–77; RESP 13–21; TEMP 35.8; O2SAT 95–100
--- NOTE | ~2022-01-07 | CT_ITS ---
EXAMINATION: CT brain wo con DATE: 01/07/2022 15:58 INDICATION: Right temporal headache. TECHNIQUE: Computed tomography (CT) of the head was performed without intravenous contrast. The mA wa s adjusted according to patient size. Iterative reconstruction technique was employed. The dose-lengt h product was 605.33 mGy-cm. COMPARISON: Head CT 11/20/20 FINDINGS: There are scattered areas of low attenuation in the cerebral white matter, which is within normal limits for the patient's age. There is no intracranial hemorrhage, acute infarction, or abnorm al intracranial mass lesion. The ventricles are normal in size. The mastoid air cells are normal. The re are likely changes of left ocular lens replacement surgery. The paranasal sinuses are clear. IMPRESSION: 1. Normal aging brain. Reviewed, dictated and finalized at location E. NEYMAN PATTERNMAKER IMPRESSION: 1. Normal aging brain.
--- NOTE | 2022-01-07 15:20 | ECG_ITS ---
Measurements Intervals [place] Rate: 69 P: 35 OK: 195 QRS: -17 QRSD: 104 T: 24 QT: 391 QTc: 421 Interpretive Statements SINUS RHYTHM ATRIAL PREMATURE COMPLEX LEFT VENTRICULAR HYPERTROPHY BORDERLINE R WAVE PROGRESSION, ANTERIOR LEADS BORDERLINE ECG Electronically Signed On 01-07-2022 16:11:38 [employer]LE MILL OPERATOR by Michael Moreno D.O.
[2022-01-07 15:31] LABS: Basophils Absolute Auto 0.1 K/mm3 (0.0-0.1); Basophils Percent Auto 0.6 % (0.2-1.2); Eosinophils Absolute Auto 0.2 K/mm3 (0-0.3); Eosinophils Percent Auto 2.7 % (0-4.4); Hematocrit 40.8 % (37.0-47.0); Hemoglobin 12.9 g/dL (12.0-15.0); Immature Granulocyte Absolute 0.03 K/mm3 (0.00-0.031); Immature Granulocyte Percent A 0.4 % (0-0.5); Lymphocytes Percent Auto 32.1 % (18.3-44.2); Mean Corpuscular HGB Conc 31.6 g/dl (32-36); Mean Corpuscular Hemoglobin 28.2 pg (26-34); Mean Corpuscular Volume 89.1 fl (80-100); Mean Platelet Volume 9.5 fl (7.4-10.4); Monocytes Absolute Auto 0.5 K/mm3 (0.1-0.6); Monocytes Percent Auto 6.3 % (2.6-8.5); Neutrophils Absolute Auto 4.5 K/mm3 (1.3-6.7); Neutrophils Percent Auto 57.9 % (45.5-73.1); Platelet Count Result 182 k/mm3 (150-375); Red Blood Count 4.58 M/mm3 (4.2-5.4); Red Cell Distribution Width 25.5 % (11.5-14.5); White Blood Count 7.8 K/mm3 (4.5-10.0)
[2022-01-07 15:44] LABS: Alanine Aminotransferase 25 U/L (4-35); Albumin Level 4.5 g/dL (3.5-5.1); Alkaline Phosphatase 73 U/L (38-126); Anion Gap 8 mmol/L (8-16); Aspartate Amino Transferase 28 U/L (14-36); Bilirubin,Total 0.3 mg/dL (0.2-1.3); Blood Urea Nitrogen 17 mg/dL (7-17); Carbon Dioxide 26 mmol/L (22-30); Chloride 102 mmol/L (98-107); Estimated CRCL calculation 37 ml/min; Estimated Glomerular Filt Rate 48; Glucose 113 mg/dL (65-110); Potassium 4.1 mmol/L (3.4-5.0); Sodium 136 mmol/L (137-145)
--- NOTE | 2022-01-07 15:56 | ED.GENADULT ---
HPI - General Adult General Chief complaint: Recheck/Abnormal Lab/Rx Stated complaint: High Blood Pressure Time Seen by Provider: 01/07/22 15:20 Source: patient Mode of arrival: ambulatory Limitations: no limitations History of Present Illness HPI narrative: Patient is a 76-year-old female complaining of elevated blood pressure accompanied by mild headache, frontal x1 week. Patient states that she saw her PCP this past week due to her elevated blood pressure and he increase one her blood pressure medication from once a day to twice a day. Patient states that she is here because her blood pressure is still elevated even though her primary care physician increase her blood pressure medication 3 days ago. Patient denies any dizziness, speech or visual disturbance, focal weakness or numbness, unsteady gait, chest pain, shortness of breath, abdominal pain, nausea, vomiting or diaphoresis. Related Data Home Medications Medication Instructions Recorded Confirmed calcium carbonate 600 mg calcium 600 mg PO BID 07/12/20 01/06/22 (1,500 mg) tablet cholecalciferol (vitamin D3) 25 25 mcg PO BID 07/12/20 01/06/22 mcg (1,000 unit) capsule magnesium 250 mg tablet 500 mg PO BID tablet 07/12/20 01/06/22 meloxicam 15 mg PO DAILY 06/21/21 01/06/22 vitamin [id number] acid 1 tablet PO DAILY 12/08/21 01/06/22 Allergies Allergy/AdvReac Type Severity Reaction Status Date / Time Sulfa (Sulfonamide Allergy Mild UNSURE Verified 01/07/22 15:18 Antibiotics) methotrexate Allergy Unknown Unknown Verified 01/07/22 15:18 mirabegron Allergy Unknown Dyspnea / Verified 01/07/22 15:18 SOB Penicillins Allergy Unknown Hives Verified 01/07/22 15:18 sulfamethizole Allergy Unknown Nausea Verified 01/07/22 15:18 Review of Systems Review of Systems: All systems reviewed & are unremarkable except as noted in HPI and below Constitutional: Constitutional: Denies body ache(s), Denies chills, Denies excessive sweating, Denies fatigue, Denies fever(s), Denies headache(s), Denies lethargy, Denies malaise, Denies weakness and Denies weight loss Eyes: Eyes: Denies blurry vision, Denies change in vision and Denies loss of vision ENT: Denies dizziness, Denies ear discharge, Denies headache(s), Denies lip swelling, Denies epistaxis, Denies nasal congestion, Denies neck pain, Denies throat swelling and Denies tongue swelling Cardiovascular: Cardiovascular: Denies chest pain, Denies chest pain at rest, Denies chest pain with activity, Denies diaphoresis, Denies rapid heart rate, Denies edema, Denies irregular heart rhythm, Denies lightheadedness, Denies palpitations, Denies dyspnea and Denies dyspnea on exertion Respiratory: Respiratory: Denies chest congestion, Denies cough, Denies hemoptysis, Denies dyspnea and Denies dyspnea on exertion Gastrointestinal: Gastrointestinal: Denies abdominal pain, Denies melena, Denies hematochezia, Denies diarrhea, Denies nausea, Denies vomiting and Denies hematemesis Musculoskeletal: Musculoskeletal: Denies abnormal gait, Denies deformity, Denies joint swelling, Denies limited range of motion, Denies neck pain and Denies numbness Neurologic: Denies Abnormal speech present, Denies abnormal gait, Denies confusion, Denies dizziness, Denies focal weakness, Denies loss of vision, Denies numbness, Denies Other visual disturbances, Denies Sensory deficit (Neuro) and Denies weakness Psychiatric: Psychiatric: Denies confusion, Denies depression, Denies auditory hallucinations, Denies homicidal ideation and Denies suicidal ideation Endocrine: Endocrine: Denies cold intolerance, Denies excessive sweating, Denies fatigue, Denies heat intolerance and Denies palpitations Hematologic/Lymphatic: Hematologic/Lymphatic: Denies easy bleeding and Denies easy bruising Allergic/Immunologic: Allergic/Immunologic: Denies lip swelling, Denies throat swelling and Denies tongue swelling PMFSH Past Medical History Medical History (Reviewed 01/07/22 @ 16:00 by
[2022-01-07] MEDS: LABETALOL HCL INJ 100 MG/20 ML VIAL 20 MG IV PUSH (16:16)
[2022-01-07 16:17] LABS: Troponin I < 0.012 ng/mL (0.000-0.034)
== END 2022-01-07 18:45 | disposition home or self-care (01) ==
PROVIDERS: Emergency Provider Emergency Medicine; PCP Family Medicine
DX: I16.0 Hypertensive urgency (principal); I12.9 Hypertensive chronic kidney disease with stage 1 through stage 4 chronic kidney disease, or unspecified chronic kidney disease; N18.30 Chronic kidney disease, stage 3 unspecified; E11.22 Type 2 diabetes mellitus with diabetic chronic kidney disease; E11.21 Type 2 diabetes mellitus with diabetic nephropathy; J81.1 Chronic pulmonary edema; D50.9 Iron deficiency anemia, unspecified; D51.9 Vitamin B12 deficiency anemia, unspecified; M19.079 Primary osteoarthritis, unspecified ankle and foot; M19.019 Primary osteoarthritis, unspecified shoulder; M11.1 Familial chondrocalcinosis; N39.46 Mixed incontinence; G89.29 Other chronic pain; E66.9 Obesity, unspecified; Z68.30 Body mass index [BMI] 30.0-30.9, adult; M21.42 Flat foot [pes planus] (acquired), left foot; M21.41 Flat foot [pes planus] (acquired), right foot; Z86.16 Personal history of COVID-19; Z87.440 Personal history of urinary (tract) infections; Z96.659 Presence of unspecified artificial knee joint; Z98.1 Arthrodesis status; Z79.84 Long term (current) use of oral hypoglycemic drugs; I49.1 Atrial premature depolarization; R94.31 Abnormal electrocardiogram [ECG] [EKG]; I51.7 Cardiomegaly
CPT/HCPCS: 36415; 70450; 80053; 84484; 85025; 93005; 96374; 99284

== ENCOUNTER → 2022-01-10 10:22 | Outpatient (CLI) | payer MEDICARE, SELFPAY ==
--- NOTE | ~2022-01-10 | MM_ITS ---
EXAMINATION: MM screening charo BI w phil HISTORY: Screening TECHNIQUE: Craniocaudal and mediolateral oblique 3-D tomosynthesis images were obtained and synthetic 2-D images were generated. CAD analysis was submitted and interpreted. COMPARISON: Comparison to multiple prior studies sequentially, with oldest reviewed study dated 06/14. BREAST PARENCHYMAL COMPOSITION: There are scattered areas of fibroglandular density. FINDINGS: There is no evidence of suspicious mass, calcification, or architectural distortion to sugg est malignancy in either breast. There has been no suspicious interval change. IMPRESSION: 1. No mammographic evidence of malignancy. 2. Recommend routine screening mammography in one year. BI-RADS Category 1: Negative Reviewed, dictated and finalized at location A. KEY DRIVER
== END ==
PROVIDERS: PCP Family Medicine; Visit Provider Family Medicine
DX: Z12.31 Encounter for screening mammogram for malignant neoplasm of breast (principal)
CPT/HCPCS: 77063; 77067

== ENCOUNTER 2022-05-25 13:09 | Outpatient (CLI) | payer MEDICARE, SELFPAY ==
[2022-05-25 13:31] LABS: Estimated Glomerular Filt Rate 29
== END 2022-05-25 13:10 | disposition home or self-care (01) ==
PROVIDERS: PCP Family Medicine; Visit Provider Internal Medicine Gastroenterology
DX: R63.4 Abnormal weight loss (principal)
CPT/HCPCS: 99199

== ENCOUNTER 2022-06-02 14:05 | Outpatient (CLI) | payer MEDICARE, SELFPAY ==
--- NOTE | ~2022-06-02 | CT_ITS ---
EXAMINATION: CTA abdomen pelvis DATE: 06/02/2022 15:13 INDICATION: Mesenteric insufficiency TECHNIQUE: Computed tomography (CT) of the abdomen and pelvis was performed with 100 CC Omnipaque 350 intravenous contrast. Automated exposure control and iterative reconstruction technique were employe d. Exam dose: 1111.36 mGy-cm total exam DLP. COMPARISON: 09/12/2021 CT abdomen pelvis FINDINGS: There is mild bilateral lower lobe. Size within normal limits. No pericardial or pleural effusion. Status post cholecystectomy. This may account for mild dilatation of the common bile duct. Included portion of the spleen is clear of masses. No pancreatic mass lesion is noted other than appr oximately 12 mm cystic lesion at the tip of the tail the pancreas. No pancreatic calcification or kimber dina dilatation. Spleen is within upper normal range, measuring 20.5 cm height. No adrenal mass lesion. Bilateral renal moderate volume loss and scarring. 2 cm right renal cyst. No urinary tract calculus or hydroureteronephrosis. The urinary bladder is unremarkable. Status post hysterectomy. There is prominent calcification at the origin of the celiac artery and severe calcification and sten osis at the origin of the superior mesenteric artery. There is calcification and tortuosity but no an eurysm of the abdominal aorta. There is calcification of the iliac and femoral arteries. No intraperitoneal or retroperitoneal or pelvic mass lesion or adenopathy or ascites. Normal appendix. There are numerous diverticula of the sigmoid and to a lesser extent descending and ascending colon; no evidence of diverticulitis. Prominent degenerative spurring of the lower thoracic and lumbar spine. Status post posterior surgical fusion at L3-5. Severe degenerative disc disease at T12-L1, L1-L2, sev ere degenerative disease at L2-3 with mild retrolisthesis at all 3 of these levels. Moderately severe degenerative disc disease at L5-S1. There is grade 1 anterolisthesis at L4-5. IMPRESSION: Prominent calcification at the origin the celiac artery and severe calcification and carol nosis of the origin of the superior mesenteric artery Atherosclerotic calcification and tortuosity of the abdominal aorta, without aneurysm or dissection Status post cholecystectomy Bilateral renal atrophy. Right renal cyst. Diverticulosis of the colon; no evidence of diverticulitis Normal appendix Reviewed, dictated and finalized at Location A. Reviewed, dictated and finalized at location A. IMPRESSION: Prominent calcification at the origin the celiac artery and severe calcification and stenosis of the origin of the superior mesenteric artery Atherosclerotic calcification and tortuosity of the abdominal aorta, without an eurysm or dissection Status post cholecystectomy Bilateral renal atrophy. Right renal cyst. Diverticulosis of the colon; no evidence of diverticulitis Normal appendix
[2022-06-02 14:34] LABS: Estimated Glomerular Filt Rate 44
== END 2022-06-02 14:06 | disposition home or self-care (01) ==
PROVIDERS: PCP Family Medicine; Visit Provider Internal Medicine Gastroenterology
DX: R10.9 Unspecified abdominal pain (principal); K55.059 Acute (reversible) ischemia of intestine, part and extent unspecified; I70.0 Atherosclerosis of aorta; Z90.49 Acquired absence of other specified parts of digestive tract; N26.1 Atrophy of kidney (terminal); N28.1 Cyst of kidney, acquired; K57.90 Diverticulosis of intestine, part unspecified, without perforation or abscess without bleeding
CPT/HCPCS: 74174; Q9967

== ENCOUNTER 2022-08-01 16:24 | Emergency (ER) | payer MEDICARE, SELFPAY ==
--- NOTE | 2022-08-01 16:28 | ED.EXTPRO ---
HPI - Extremity Problem General Stated complaint: FEET SWELLING/CALF PAIN Time Seen by Provider: 08/01/22 16:36 Source: patient and RN notes reviewed Mode of arrival: ambulatory Limitations: no limitations History of Present Illness HPI Narrative: 76-year-old female presents with concern for right lower leg swelling, pain. Reports she was sitting a lot over the weekend and had bilateral lower extremity swelling, however the right lower leg is continuing to be swollen and is painful, she reports she feels a cramping sensation in her calf. She reports yesterday she started having trouble with her breath she denies current shortness of breath. She reports a recent vascular surgery in her left upper arm for which she was placed on blood thinners approximately on July 18. She denies history of blood clots, or use of blood thinners prior to July 18. MD Complaint: extremity pain and extremity swelling Related Data Home Medications Medication Instructions Recorded Confirmed calcium carbonate 600 mg calcium 600 mg PO BID 07/12/20 07/27/22 (1,500 mg) tablet cholecalciferol (vitamin D3) 25 25 mcg PO BID 07/12/20 07/27/22 mcg (1,000 unit) capsule magnesium 250 mg tablet 500 mg PO BID 07/12/20 07/27/22 aspirin 81 mg tablet 81 mg PO DAILY 07/21/22 07/27/22 clopidogrel 75 mg tablet (Plavix) 75 mg PO DAILY 07/21/22 07/27/22 aspirin 81 mg tablet,delayed mg 08/01/22 release Allergies Allergy/AdvReac Type Severity Reaction Status Date / Time Sulfa (Sulfonamide Allergy Mild UNSURE Verified 07/27/22 09:52 Antibiotics) methotrexate Allergy Unknown Unknown Verified 07/27/22 09:52 mirabegron Allergy Unknown Dyspnea / Verified 07/27/22 09:52 SOB Penicillins Allergy Unknown Hives Verified 07/27/22 09:52 sulfamethizole Allergy Unknown Nausea Verified 07/27/22 09:52 Review of Systems Review of Systems: CONSTITUTIONAL: Denies malaise, chills, sweats, or fever. CARDIOVASCULAR: Denies chest pain, palpitations, or edema. RESPIRATORY: Denies cough or dyspnea. SKIN: Denies rash or itching, bruising, redness MUSCULOSKELETAL: Reports swelling and pain in her right lower leg NEUROLOGIC: Denies numbness, weakness All systems reviewed & are unremarkable except as noted in HPI and below PMFSH Past Medical History Medical History (Updated 08/01/22 @ 16:59 by Munira Cobb NP) Acute kidney failure, unspecified Acute kidney injury superimposed on CKD Adjustment disorder with depressed mood Arthritis of foot, degenerative Arthritis of left shoulder region B12 deficiency anemia Chronic pain Chronic pulmonary edema CKD (chronic kidney disease) stage 3, GFR 30-59 ml/min Compression fracture of body of thoracic vertebra COVID-19 COVID-19 long hauler Degenerative lumbar spinal stenosis Dehydration Essential (primary) hypertension Familial chondrocalcinosis, unspecified site Fe deficiency anemia Mastitis, right, acute Mixed stress and urge urinary incontinence Nonalcoholic steatohepatitis ([place]) Obesity (BMI 30.0-34.9) Osteopenia Other specified crystal arthropathies, unspecified site Pes planus of both feet Primary pulmonary hypertension Pseudogout Rotator cuff tear Spinal stenosis, unspecified region other than cervical Type 2 diabetes mellitus with chronic kidney disease, 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 Urinary incontinence UTI (urinary tract infection) Surgical History Surgical History (Updated 07/27/22 @ 09:52 by Sabine Fontanez MA) H/O: hysterectomy total History of cholecystectomy History of knee replacement (2005) History of lumbar fusion History of lumbar laminectomy (2009) Hx of tonsillectomy S/P arthroscopy of left shoulder S/P coronary angiogram 07/18/22 mesenteric angiogram w possible superior mesenteric artery stent Family History Family History Sibling Diabetes mellitus Cerebrovascula
[2022-08-01 16:34] VITALS: BP 140/87; PULSE 92; RESP 16; TEMP 36.6; O2SAT 97
== END 2022-08-01 17:03 | disposition short-term general hospital (02) ==
PROVIDERS: Emergency Provider Nurse Practitioner; PCP Family Medicine
DX: M79.661 Pain in right lower leg (principal); R22.41 Localized swelling, mass and lump, right lower limb; I12.9 Hypertensive chronic kidney disease with stage 1 through stage 4 chronic kidney disease, or unspecified chronic kidney disease; E11.22 Type 2 diabetes mellitus with diabetic chronic kidney disease; N18.30 Chronic kidney disease, stage 3 unspecified; Z86.16 Personal history of COVID-19; Z79.82 Long term (current) use of aspirin; K75.81 Nonalcoholic steatohepatitis (NASH); M85.80 Other specified disorders of bone density and structure, unspecified site; E11.42 Type 2 diabetes mellitus with diabetic polyneuropathy
CPT/HCPCS: 99212; G0463

== ENCOUNTER 2022-08-09 11:36 | Outpatient (CLI) | payer MEDICARE, SELFPAY ==
[2022-08-09 18:30] LABS: INR 3.1; Prothrombin Time 31.3 Seconds (11.1-14.7)
== END 2022-08-09 11:37 | disposition home or self-care (01) ==
LOC: ANHGOSHLAB 11:38
PROVIDERS: PCP Family Medicine; Visit Provider Family Medicine
DX: I26.99 Other pulmonary embolism without acute cor pulmonale (principal)
CPT/HCPCS: 36415; 85610